=== PATIENT | male | born 1960 | race Caucasian/White ===

== ENCOUNTER 2017-03-17 19:56 | Inpatient (IN) | payer OTHER ==
[~2017-03-17] VITALS: Ht 188 cm; Wt 90.9 kg
[~2017-03-17 19:56] MED LIST: AMIODARONE HCL200 MG PO; ASPI-COR81 M3 PO; ASPIR 8181 MG PO; ATORVASTATIN CA40 M1 PO; BUMETANIDE2 MG PO; CARVEDILOL25 M1 PO; CLINDAMYCIN HC300 MG PO; CLOPIDOGREL75 M1 PO; COUMADIN5 MG PO; FUROSEMIDE20 MG PO; FUROSEMIDE40 MG PO; HYDRALAZINE HYD50 MG PO; HYDRALAZINE50 M1 PO; IMDUR30 MG PO; LAC PO; LASIX20 MG PO; LEVAQUIN500 MG PO; LIPITOR40 MG PO; LISINOPRIL20 MG PO; METOPROLOL SUC100 M1 PO; METOPROLOL SUCC50 M2 PO; PANTOPRAZOLE SO40 M1 PO; POTASSIUM CHLO10 MEQ PO; PRO40 PO; TOP50 PO; WARFARIN SOD5 M1 PO; XARELTO10 M1 PO; XARELTO15 M1 PO; ZESTRIL20 MG PO
[2017-03-17 22:15] LABS: BASOPHIL % 0.7 % (0-2); PLATELET COUNT 165 x10^3mcL (130-400)
[2017-03-17 22:28] LABS: CALCIUM 8.7 mg/dL (8.5-10.1); CARBON DIOXIDE 26.9 mmol/L (21-32); POTASSIUM SERUM 3.2 mmol/L (3.5-5.1)
[2017-03-17 22:33] LABS: BILIRUBIN TOTAL 0.7 mg/dL (0.20-1.00); MAGNESIUM 2.3 mg/dL (1.8-2.4); TOTAL PROTEIN, SERUM 6.6 g/dL (6.4-8.2)
[2017-03-17 22:35] LABS: ALBUMIN 3.2 g/dL (3.4-5.0)
[2017-03-17] MEDS ORDERED: XARELTO10 M1 PO (22:49)
[2017-03-17] MEDS ORDERED: AMIODARONE HCL200 MG PO (22:54)
[2017-03-18] VITALS (7 sets, daily range): BP systolic 129–171; BP diastolic 83–126; Ht 188 cm; Wt 90.9 kg
[2017-03-18 01:05] LABS: T3 TOTAL 0.85 ng/mL
[2017-03-18 01:07] LABS: CHOLESTEROL/HDL RATIO 2.3
[2017-03-18 01:17] LABS: FREE T4 1.43 ng/dL (0.76-1.46); FREE THYROXINE INDEX 3.6 ug/dL (1.4-4.5)
[2017-03-18 02:50] LABS: UA SPECIFIC GRAVITY 1.025 (1.005-1.035); microscopic required? YES; urine erythrocyte 2+ (NEGATIVE)
[2017-03-18 03:12] LABS: AMPHETAMINE QUAL UR NONE DETECTED (NEG <=1000)
[2017-03-18 06:18] LABS: BASOPHIL % 1.5 % (0-2); PLATELET COUNT 141 x10^3mcL (130-400)
[2017-03-18 06:48] LABS: RED CELL DISTRIBUTION WIDTH 19.1 % (11.5-14.5)
[2017-03-18 07:41] LABS: BILIRUBIN TOTAL 0.5 mg/dL (0.20-1.00); CALCIUM 8.1 mg/dL (8.5-10.1); CARBON DIOXIDE 24.6 mmol/L (21-32); CREATININE SERUM 3.9 mg/dL (0.7-1.3); POTASSIUM SERUM 3.2 mmol/L (3.5-5.1)
[2017-03-18 08:04] LABS: ALBUMIN 2.7 g/dL (3.4-5.0); TOTAL PROTEIN, SERUM 5.3 g/dL (6.4-8.2)
[2017-03-19 04:50] LABS: BASOPHIL % 0.8 % (0-2); PLATELET COUNT 145 x10^3mcL (130-400)
[2017-03-19 04:54] LABS: RED CELL DISTRIBUTION WIDTH 18.9 % (11.5-14.5)
[2017-03-19 05:01] LABS: CALCIUM 8.3 mg/dL (8.5-10.1); CARBON DIOXIDE 23.8 mmol/L (21-32); CREATININE SERUM 3.5 mg/dL (0.7-1.3); MAGNESIUM 2.2 mg/dL (1.8-2.4); PHOSPHOROUS 3.6 mg/dL (2.5-4.9); POTASSIUM SERUM 3.5 mmol/L (3.5-5.1)
[2017-03-19 05:50] VITALS: BP 149/109
[2017-03-19 07:15] VITALS: BP 144/102
[2017-03-19 13:38] VITALS: BP 120/78
[2017-03-19 17:05] VITALS: BP 137/96
[2017-03-19 20:54] VITALS: BP 146/100
[2017-03-20 06:12] VITALS: BP 147/65
[2017-03-20 06:44] LABS: BASOPHIL % 0.8 % (0-2); PLATELET COUNT 161 x10^3mcL (130-400)
[2017-03-20 07:00] LABS: CALCIUM 8.4 mg/dL (8.5-10.1); CARBON DIOXIDE 24.9 mmol/L (21-32); CREATININE SERUM 3.5 mg/dL (0.7-1.3); POTASSIUM SERUM 3.5 mmol/L (3.5-5.1)
[2017-03-20 09:47] VITALS: BP 140/94
[2017-03-20 13:39] VITALS: BP 124/83
[2017-03-20] MEDS ORDERED: THERA TABS1 TAB PO (17:54)
[2017-03-20 18:30] VITALS: BP 147/86
[2017-03-20 20:04] VITALS: BP 147/86
== END 2017-03-20 21:15 | disposition home or self-care (01) | DRG 203 ==
LOC: ED 19:56 → DU 23:18
PROVIDERS: Emergency Medicine; Family Medicine; ADMIT Family Medicine
DX: M94.0 Chondrocostal junction syndrome [Tietze] (principal); N17.0 Acute kidney failure with tubular necrosis; E43 Unspecified severe protein-calorie malnutrition; I50.43 Acute on chronic combined systolic (congestive) and diastolic (congestive) heart failure; E11.51 Type 2 diabetes mellitus with diabetic peripheral angiopathy without gangrene; I24.8 Other forms of acute ischemic heart disease; I48.91 Unspecified atrial fibrillation; E87.6 Hypokalemia; E44.0 Moderate protein-calorie malnutrition; E87.1 Hypo-osmolality and hyponatremia; E11.65 Type 2 diabetes mellitus with hyperglycemia; I16.0 Hypertensive urgency; I13.0 Hypertensive heart and chronic kidney disease with heart failure and stage 1 through stage 4 chronic kidney disease, or unspecified chronic kidney disease; N18.4 Chronic kidney disease, stage 4 (severe); D64.9 Anemia, unspecified; I25.10 Atherosclerotic heart disease of native coronary artery without angina pectoris; E78.5 Hyperlipidemia, unspecified; E03.9 Hypothyroidism, unspecified; Z68.25 Body mass index [BMI] 25.0-25.9, adult; Z59.0 Homelessness; Z95.0 Presence of cardiac pacemaker; Z79.01 Long term (current) use of anticoagulants; Z95.5 Presence of coronary angioplasty implant and graft; Z87.891 Personal history of nicotine dependence
CPT/HCPCS: 80307; 82962; 83880; 84439; A9500; G0480; J0360; J1644; J1940; J2270; J2785; J3480; J3490; J7030; Q0092

== ENCOUNTER 2017-07-15 08:57 | Inpatient (IN) | payer OTHER ==
[~2017-07-15] VITALS: Ht 188 cm; Wt 86.9 kg
[~2017-07-15 08:57] MED LIST changes: +THERA TABS1 TAB PO
[2017-07-15 09:32] LABS: BASOPHIL % 0.7 % (0-2); PLATELET COUNT 140 x10^3mcL (130-400)
[2017-07-15 09:49] LABS: RED CELL DISTRIBUTION WIDTH 19.2 % (11.5-14.5)
[2017-07-15 09:58] LABS: BILIRUBIN TOTAL 0.7 mg/dL (0.20-1.00); CALCIUM 8.6 mg/dL (8.5-10.1); CARBON DIOXIDE 26.5 mmol/L (21-32); POTASSIUM SERUM 4.1 mmol/L (3.5-5.1); TOTAL PROTEIN, SERUM 6.8 g/dL (6.4-8.2)
[2017-07-15 10:06] LABS: ALBUMIN 3.1 g/dL (3.4-5.0); CREATININE SERUM 4.2 mg/dL (0.7-1.3)
[2017-07-15 12:51] VITALS: BP 155/113
[2017-07-15 13:09] LABS: FREE T4 1.4 ng/dL (0.76-1.46); FREE THYROXINE INDEX 4.8 ug/dL (1.4-4.5)
[2017-07-15 13:13] LABS: MAGNESIUM 2.6 mg/dL (1.8-2.4); PHOSPHOROUS 3.2 mg/dL (2.5-4.9)
[2017-07-15 13:19] LABS: CHOLESTEROL/HDL RATIO 2.7
[2017-07-15 13:44] LABS: T3 TOTAL 0.74 ng/mL
[2017-07-15 17:11] VITALS: BP 161/117
[2017-07-15 21:57] VITALS: BP 156/113
[2017-07-16] VITALS (8 sets, daily range): BP systolic 123–172; BP diastolic 85–119
[2017-07-16 02:25] LABS: PLATELET COUNT 161 x10^3mcL (130-400)
[2017-07-16 02:46] LABS: CALCIUM 8.7 mg/dL (8.5-10.1); CARBON DIOXIDE 24.4 mmol/L (21-32); MAGNESIUM 2.6 mg/dL (1.8-2.4); PHOSPHOROUS 4.4 mg/dL (2.5-4.9); POTASSIUM SERUM 3.7 mmol/L (3.5-5.1)
[2017-07-16 02:51] LABS: CREATININE SERUM 4.3 mg/dL (0.7-1.3)
[2017-07-16 07:25] LABS: AMPHETAMINE QUAL UR NONE DETECTED (NEG <=1000)
[2017-07-16 11:05] LABS: microscopic required? YES; urine erythrocyte 2+ (NEGATIVE)
[2017-07-17 05:45] VITALS: BP 122/86
[2017-07-17 08:30] VITALS: BP 155/104
[2017-07-17 09:35] VITALS: BP 116/82
[2017-07-17 12:16] VITALS: BP 141/95
[2017-07-17 16:55] VITALS: BP 129/94
[2017-07-17 21:03] VITALS: BP 133/89
[2017-07-18 06:01] VITALS: BP 148/98
[2017-07-18 06:49] LABS: CALCIUM 8.3 mg/dL (8.5-10.1); CARBON DIOXIDE 28.8 mmol/L (21-32); CREATININE SERUM 3.6 mg/dL (0.7-1.3); POTASSIUM SERUM 3.3 mmol/L (3.5-5.1)
[2017-07-18 09:18] VITALS: BP 144/104
[2017-07-18 12:14] VITALS: BP 143/108
[2017-07-18 13:40] VITALS: BP 142/95
[2017-07-18 13:50] VITALS: BP 142/95
== END 2017-07-18 15:00 | disposition home or self-care (01) | DRG 243 ==
LOC: ED 08:57 → DU 11:23
PROVIDERS: Family Medicine; ADMIT Family Medicine
DX: K21.9 Gastro-esophageal reflux disease without esophagitis (principal); N17.0 Acute kidney failure with tubular necrosis; I50.43 Acute on chronic combined systolic (congestive) and diastolic (congestive) heart failure; I42.0 Dilated cardiomyopathy; E11.22 Type 2 diabetes mellitus with diabetic chronic kidney disease; E46 Unspecified protein-calorie malnutrition; N18.4 Chronic kidney disease, stage 4 (severe); E11.65 Type 2 diabetes mellitus with hyperglycemia; I48.91 Unspecified atrial fibrillation; M94.0 Chondrocostal junction syndrome [Tietze]; I13.0 Hypertensive heart and chronic kidney disease with heart failure and stage 1 through stage 4 chronic kidney disease, or unspecified chronic kidney disease; E83.41 Hypermagnesemia; E02 Subclinical iodine-deficiency hypothyroidism; I25.10 Atherosclerotic heart disease of native coronary artery without angina pectoris; Z95.0 Presence of cardiac pacemaker; Z68.25 Body mass index [BMI] 25.0-25.9, adult; Z95.1 Presence of aortocoronary bypass graft; Z87.891 Personal history of nicotine dependence; Z95.5 Presence of coronary angioplasty implant and graft; E78.5 Hyperlipidemia, unspecified; E78.00 Pure hypercholesterolemia, unspecified
CPT/HCPCS: 82962; 83880; 84439; J0360; J1940; J2270; J2405; J3490; Q0092

== ENCOUNTER 2017-07-18 16:02 | Emergency (ER) | payer OTHER ==
[~2017-07-18] VITALS: Ht 188 cm; Wt 86.2 kg
[2017-07-18 17:33] LABS: BASOPHIL % 1.2 % (0-2); PLATELET COUNT 144 x10^3mcL (130-400)
[2017-07-18 17:37] LABS: BILIRUBIN TOTAL 0.65 mg/dL (0.20-1.00); CALCIUM 8.9 mg/dL (8.5-10.1); PHOSPHOROUS 3.1 mg/dL (2.5-4.9); TOTAL PROTEIN, SERUM 6.7 g/dL (6.4-8.2); URIC ACID 7.9 mg/dL (3.5-7.2)
[2017-07-18 17:40] LABS: ALBUMIN 2.9 g/dL (3.4-5.0)
[2017-07-18 17:41] LABS: CREATININE SERUM 4.1 mg/dL (0.7-1.3)
[2017-07-18 17:43] LABS: RED CELL DISTRIBUTION WIDTH 19.4 % (11.5-14.5)
[2017-07-18 19:20] VITALS: BP 168/126
== END 2017-07-18 19:20 | disposition home or self-care (01) ==
LOC: ED 16:02
PROVIDERS: Emergency Medicine
DX: R55 Syncope and collapse (principal); I10 Essential (primary) hypertension; Z86.79 Personal history of other diseases of the circulatory system
CPT/HCPCS: 83880; J7040; Q0092

== ENCOUNTER 2017-08-20 12:49 | Inpatient (IN) | payer OTHER ==
[~2017-08-20] VITALS: Ht 188 cm; Wt 88.6 kg
[2017-08-20 16:37] LABS: BASOPHIL % 0.8 % (0-2); PLATELET COUNT 143 x10^3mcL (130-400)
[2017-08-20 16:41] LABS: CALCIUM 8.8 mg/dL (8.5-10.1); CARBON DIOXIDE 26.9 mmol/L (21-32); CREATININE SERUM 3.8 mg/dL (0.7-1.3); POTASSIUM SERUM 3.3 mmol/L (3.5-5.1)
[2017-08-20 16:46] LABS: BILIRUBIN TOTAL 0.8 mg/dL (0.20-1.00); TOTAL PROTEIN, SERUM 7.2 g/dL (6.4-8.2)
[2017-08-20 16:48] LABS: ALBUMIN 3.1 g/dL (3.4-5.0)
[2017-08-20 19:46] LABS: MAGNESIUM 2.6 mg/dL (1.8-2.4); PHOSPHOROUS 3.1 mg/dL (2.5-4.9)
[2017-08-20 20:33] VITALS: BP 167/98
[2017-08-20 21:26] LABS: UA SPECIFIC GRAVITY 1.015 (1.005-1.035); microscopic required? YES; urine erythrocyte 1+ (NEGATIVE)
[2017-08-20 22:15] VITALS: BP 124/91
[2017-08-21] VITALS (9 sets, daily range): BP systolic 147–179; BP diastolic 89–135
[2017-08-21 06:13] LABS: BASOPHIL % 1.1 % (0-2); PLATELET COUNT 134 x10^3mcL (130-400)
[2017-08-21 06:19] LABS: RED CELL DISTRIBUTION WIDTH 18.8 % (11.5-14.5)
[2017-08-21 06:42] LABS: CALCIUM 8.5 mg/dL (8.5-10.1); CARBON DIOXIDE 27.4 mmol/L (21-32); CREATININE SERUM 3.6 mg/dL (0.7-1.3); POTASSIUM SERUM 3.3 mmol/L (3.5-5.1)
[2017-08-22] VITALS (7 sets, daily range): BP systolic 147–168; BP diastolic 100–122
[2017-08-22 07:23] LABS: BASOPHIL % 1.1 % (0-2); PLATELET COUNT 131 x10^3mcL (130-400)
[2017-08-22 07:47] LABS: CALCIUM 8.4 mg/dL (8.5-10.1); CARBON DIOXIDE 27.9 mmol/L (21-32); CREATININE SERUM 3.6 mg/dL (0.7-1.3); MAGNESIUM 2.6 mg/dL (1.8-2.4); PHOSPHOROUS 3.2 mg/dL (2.5-4.9)
[2017-08-23 05:13] VITALS: BP 150/109
[2017-08-23 06:32] LABS: CALCIUM 8.3 mg/dL (8.5-10.1); CARBON DIOXIDE 30.5 mmol/L (21-32); CREATININE SERUM 3.6 mg/dL (0.7-1.3); MAGNESIUM 2.4 mg/dL (1.8-2.4); PHOSPHOROUS 3.2 mg/dL (2.5-4.9); POTASSIUM SERUM 3.7 mmol/L (3.5-5.1)
[2017-08-23 07:08] LABS: BASOPHIL % 0.9 % (0-2); PLATELET COUNT 144 x10^3mcL (130-400); RED CELL DISTRIBUTION WIDTH 18.8 % (11.5-14.5)
[2017-08-23 08:30] VITALS: BP 145/102
[2017-08-23 15:08] VITALS: BP 134/96
[2017-08-23] MEDS ORDERED: BG FS (16:50)
[2017-08-23] MEDS ORDERED: CORE25 PO (16:54)
[2017-08-23] MEDS ORDERED: CLOPIDOGREL75 M1 PO (16:55)
[2017-08-23 17:04] VITALS: BP 134/96
[2017-08-23 17:38] VITALS: BP 150/80; BP 169/127
== END 2017-08-23 18:10 | disposition home or self-care (01) | DRG 194 ==
LOC: ED 12:49 → DU 17:36
PROVIDERS: Emergency Medicine; Family Medicine Sports Medicine; ADMIT Family Medicine
DX: I13.2 Hypertensive heart and chronic kidney disease with heart failure and with stage 5 chronic kidney disease, or end stage renal disease (principal); N17.0 Acute kidney failure with tubular necrosis; D68.69 Other thrombophilia; E11.22 Type 2 diabetes mellitus with diabetic chronic kidney disease; N18.6 End stage renal disease; E11.65 Type 2 diabetes mellitus with hyperglycemia; I42.0 Dilated cardiomyopathy; I50.43 Acute on chronic combined systolic (congestive) and diastolic (congestive) heart failure; E44.1 Mild protein-calorie malnutrition; E87.6 Hypokalemia; I48.91 Unspecified atrial fibrillation; I25.10 Atherosclerotic heart disease of native coronary artery without angina pectoris; M94.0 Chondrocostal junction syndrome [Tietze]; Z95.0 Presence of cardiac pacemaker; Z68.25 Body mass index [BMI] 25.0-25.9, adult; Z95.5 Presence of coronary angioplasty implant and graft; E78.00 Pure hypercholesterolemia, unspecified; Z53.29 Procedure and treatment not carried out because of patient's decision for other reasons; I16.0 Hypertensive urgency; D64.9 Anemia, unspecified
CPT/HCPCS: 83880; 94150; J0360; J0696; J1940; J3490; J7030; J7613; J7620; J7644; Q0092

== ENCOUNTER 2017-09-15 11:22 | Inpatient (IN) | payer OTHER ==
[~2017-09-15] VITALS: Ht 188 cm; Wt 91.7 kg
[~2017-09-15 11:22] MED LIST changes: +BG FS; +CORE25 PO
[2017-09-15 12:23] LABS: BASOPHIL % 1.3 % (0-2); PLATELET COUNT 143 x10^3mcL (130-400)
[2017-09-15 12:28] LABS: BILIRUBIN TOTAL 0.86 mg/dL (0.20-1.00); CALCIUM 8.6 mg/dL (8.5-10.1); CARBON DIOXIDE 25.8 mmol/L (21-32); POTASSIUM SERUM 3.3 mmol/L (3.5-5.1); TOTAL PROTEIN, SERUM 6.9 g/dL (6.4-8.2)
[2017-09-15 12:32] LABS: ALBUMIN 3.1 g/dL (3.4-5.0); CREATININE SERUM 4.2 mg/dL (0.7-1.3)
[2017-09-15] MEDS ORDERED: AMIODARONE HCL200 MG PO (13:27)
[2017-09-15 15:13] VITALS: BP 163/103
[2017-09-15 15:16] LABS: FREE T4 1.21 ng/dL (0.76-1.46); FREE THYROXINE INDEX 3.5 ug/dL (1.4-4.5); T4(THYROXINE) 9.3 ug/dL (4.7-13.3)
[2017-09-15 15:17] LABS: T3 TOTAL 0.68 ng/mL
[2017-09-15 15:29] LABS: MAGNESIUM 2.4 mg/dL (1.8-2.4)
[2017-09-15 15:31] LABS: CHOLESTEROL/HDL RATIO 2.6
[2017-09-15 15:47] LABS: microscopic required? YES; urine erythrocyte 1+ (NEGATIVE)
[2017-09-15 16:46] LABS: AMPHETAMINE QUAL UR NONE DETECTED (NEG <=1000)
[2017-09-16 04:18] LABS: PLATELET COUNT 139 x10^3mcL (130-400); RED CELL DISTRIBUTION WIDTH 18.8 % (11.5-14.5)
[2017-09-16 04:31] LABS: CALCIUM 8.2 mg/dL (8.5-10.1); CARBON DIOXIDE 25.4 mmol/L (21-32); MAGNESIUM 2.3 mg/dL (1.8-2.4); PHOSPHOROUS 3.6 mg/dL (2.5-4.9); POTASSIUM SERUM 3.5 mmol/L (3.5-5.1)
[2017-09-16 20:25] VITALS: BP 170/125
[2017-09-16 20:28] VITALS: Ht 188 cm; Wt 91.7 kg
[2017-09-16 23:11] VITALS: BP 162/114
[2017-09-17] VITALS (8 sets, daily range): BP systolic 143–173; BP diastolic 93–133
[2017-09-17 06:45] LABS: BASOPHIL % 1.4 % (0-2); PLATELET COUNT 131 x10^3mcL (130-400)
[2017-09-17 06:51] LABS: RED CELL DISTRIBUTION WIDTH 19.7 % (11.5-14.5)
[2017-09-17 06:57] LABS: CALCIUM 8.6 mg/dL (8.5-10.1); CARBON DIOXIDE 23.5 mmol/L (21-32); POTASSIUM SERUM 3.2 mmol/L (3.5-5.1)
[2017-09-18] VITALS (14 sets, daily range): BP systolic 137–180; BP diastolic 96–144
[2017-09-18 06:34] LABS: CALCIUM 8.6 mg/dL (8.5-10.1); CARBON DIOXIDE 26.7 mmol/L (21-32); POTASSIUM SERUM 3.7 mmol/L (3.5-5.1)
[2017-09-18 06:53] LABS: BASOPHIL % 1.7 % (0-2); PLATELET COUNT 129 x10^3mcL (130-400); RED CELL DISTRIBUTION WIDTH 20.1 % (11.5-14.5); rbc morphology (normal/abnorm) ABNORMAL (NORMAL)
[2017-09-18] MEDS ORDERED: FLONS (09:45)
[2017-09-18] MEDS ORDERED: PLA75 PO (09:48)
[2017-09-18] MEDS ORDERED: ATORVASTATIN CA40 M1 PO (09:50)
[2017-09-18] MEDS ORDERED: ASPIR 8181 MG PO (09:56)
[2017-09-18] MEDS ORDERED: XARELTO15 M1 PO (09:58)
[2017-09-18] MEDS ORDERED: ZESTRIL20 MG PO (09:58)
[2017-09-18] MEDS ORDERED: LASIX40 MG PO (10:00)
[2017-09-19 01:09] VITALS: BP 150/90; BP 150/95
[2017-09-19 06:16] VITALS: BP 140/113
[2017-09-19 06:50] LABS: CALCIUM 8.4 mg/dL (8.5-10.1); CARBON DIOXIDE 26.9 mmol/L (21-32); CREATININE SERUM 3.7 mg/dL (0.7-1.3); POTASSIUM SERUM 3.7 mmol/L (3.5-5.1)
[2017-09-19 07:06] LABS: BASOPHIL % 2.1 % (0-2); PLATELET COUNT 123 x10^3mcL (130-400); RED CELL DISTRIBUTION WIDTH 19.5 % (11.5-14.5)
[2017-09-19 07:09] VITALS: BP 168/114
[2017-09-19] MEDS ORDERED: CORE25 PO (07:23)
[2017-09-19] MEDS ORDERED: ZES20 PO (07:24)
[2017-09-19] MEDS ORDERED: LEVAQUIN750 MG PO (07:40)
[2017-09-19] MEDS ORDERED: CLEOCIN HCL300 MG PO (07:41)
[2017-09-19] MEDS ORDERED: LAC PO (07:42)
[2017-09-19] MEDS ORDERED: HYDRALAZINE HCL25 MG PO (07:48)
[2017-09-19] MEDS ORDERED: ISORDIL TITRADO40 MG PO (07:49)
[2017-09-19 09:16] VITALS: BP 151/106
[2017-09-19 11:38] VITALS: BP 145/99
[2017-09-19 12:30] VITALS: BP 145/99
== END 2017-09-19 12:45 | disposition home or self-care (01) | DRG 137 ==
LOC: ED 11:22 → DU 09-16 19:03
PROVIDERS: Emergency Medicine; Family Medicine; ADMIT Family Medicine
DX: J69.0 Pneumonitis due to inhalation of food and vomit (principal); N17.0 Acute kidney failure with tubular necrosis; I50.43 Acute on chronic combined systolic (congestive) and diastolic (congestive) heart failure; I42.0 Dilated cardiomyopathy; N18.4 Chronic kidney disease, stage 4 (severe); E11.22 Type 2 diabetes mellitus with diabetic chronic kidney disease; I48.91 Unspecified atrial fibrillation; I13.0 Hypertensive heart and chronic kidney disease with heart failure and stage 1 through stage 4 chronic kidney disease, or unspecified chronic kidney disease; M94.0 Chondrocostal junction syndrome [Tietze]; I16.0 Hypertensive urgency; R80.9 Proteinuria, unspecified; E02 Subclinical iodine-deficiency hypothyroidism; D64.9 Anemia, unspecified; Z95.0 Presence of cardiac pacemaker; Z68.26 Body mass index [BMI] 26.0-26.9, adult
CPT/HCPCS: 36600; 83880; 84439; 90658; J0360; J0696; J1940; J2543; J3010; J3490; J7030; J7620; Q0092

== ENCOUNTER 2017-11-12 10:06 | Inpatient (IN) | payer OTHER ==
[~2017-11-12] VITALS: Ht 188 cm; Wt 97.2 kg
[~2017-11-12 10:06] MED LIST changes: +CLEOCIN HCL300 MG PO; +FLONS; +HYDRALAZINE HCL25 MG PO; +ISORDIL TITRADO40 MG PO; +LASIX40 MG PO; +LEVAQUIN750 MG PO; +PLA75 PO; +ZES20 PO
[2017-11-12 10:08] VITALS: Ht 188 cm; Wt 97.2 kg
--- NOTE | 2017-11-12 10:17 | NUR ---
PT IN RM
--- NOTE | 2017-11-12 10:28 | NUR ---
DR OTTO AT BEDSIDE FOR EVAL OF CP AND SOB SINCE THIS AM. PT HAS FULL CLEAR SPEECH; COMPLIANT ON MEDS; NO S/S OF RESP DISTRESS. SKIN COLOR WNL
[2017-11-12 11:09] LABS: BASOPHIL % 0.9 % (0-2); CALCIUM 8.1 mg/dL (8.5-10.1); CARBON DIOXIDE 22.6 mmol/L (21-32); CREATININE SERUM 3.4 mg/dL (0.7-1.3); PLATELET COUNT 176 x10^3mcL (130-400); POTASSIUM SERUM 3.3 mmol/L (3.5-5.1); RED CELL DISTRIBUTION WIDTH 18.1 % (11.5-14.5)
[2017-11-12 11:14] LABS: BILIRUBIN TOTAL 0.7 mg/dL (0.20-1.00); TOTAL PROTEIN, SERUM 6.4 g/dL (6.4-8.2)
[2017-11-12 11:16] LABS: ALBUMIN 2.6 g/dL (3.4-5.0)
--- NOTE | 2017-11-12 11:42 | NUR ---
DR OTTO DISCUSSED POC WITH PT
--- NOTE | 2017-11-12 11:49 | NUR ---
GIVEN VASOTEC FOR HBP
[2017-11-12] MEDS ORDERED: AMIODARONE HCL200 MG PO (11:54)
--- NOTE | 2017-11-12 12:14 | NUR ---
REPORT GIVEN TO MAURI FINNEGAN. WILL RECHECK HBP
--- NOTE | 2017-11-12 12:16 | NUR ---
DR OTTO AWARE OF HBP
--- NOTE | 2017-11-12 12:39 | NUR ---
OK PER RESIDENT DR STRAUSS FOR PT TO GO TO TELE FLOOR. AWARE OF CURRENT HBP
--- NOTE | 2017-11-12 13:12 | NUR ---
REC'D PT FROM ER VIA [facility]. PT IS AAOX4. C/O 5/10 HEADACHE. PT'S BP IS ELEVATED. BP = 185/132, MAP = 149. PRIMARY NURSE AWARE. TELE #11 PACED ON DEMAND. RESP EVEN AND UNLABORED. PT C/O MILD SOB. PT O2 SAT = 96%. APPLIED 2L O2 VIA NC FOR COMFORT. 2+ EDEMA NOTED TO BLE. IV NOTED TO LH. INTACT AND PATENT. ORIENTED PT TO CALL LIGHT. BED IN LOWEST POSITION. WILL ENDORSE TO PRIMARY RN.
[2017-11-12 13:22] VITALS: BP 185/132
--- NOTE | 2017-11-12 14:00 | NUR ---
REPORTS NOT TAKING ANY OF HIS BP MEDS THIS AM, DENIES RINCON OR VISUAL CHANGES, ABLE TO VERBALIZE NEEDS WITH CLEAR SPEECH, AMBULATES WITH STEADY GAIT, BLE EDEMA NOTED, ENCOURAGED TO ELEVATE BLE, CALL LIGHT WITHIN REACH, WILL CONTINUE TO PROVIDE CARE.
--- NOTE | 2017-11-12 14:35 | NUR ---
DOSE OF HYDRALAZINE ADMINISTERED ORDERED, PT IS A-FIB/PACED ON DEMAND ON TELE MONITOR, DENIES RINCON OR DIZZINESS, WILL CONTINUE TO PROVIDE CARE.
--- NOTE | 2017-11-12 14:37 | NUR ---
US ABD BEING DONE AT THIS TIME.
[2017-11-12 15:12] VITALS: BP 172/118
[2017-11-12 15:29] LABS: MAGNESIUM 2.2 mg/dL (1.8-2.4); PHOSPHOROUS 3.9 mg/dL (2.5-4.9)
[2017-11-12 15:30] LABS: CHOLESTEROL/HDL RATIO 1.9
--- NOTE | 2017-11-12 15:58 | NUR ---
RECEIVED CRITICAL RADIOLOGY REPORT OF US ABD. HANDED OVER TO DR. STRAUSS FOR REVIEW. WILL CONT TOMONITOR.
[2017-11-12 17:35] VITALS: BP 172/118
[2017-11-12 17:46] LABS: FREE T4 1.42 ng/dL (0.76-1.46); FREE THYROXINE INDEX 4.3 ug/dL (1.4-4.5); T4(THYROXINE) 11.5 ug/dL (4.7-13.3)
[2017-11-12 18:10] LABS: T3 TOTAL 0.71 ng/mL
[2017-11-12 19:00] VITALS: BP 178/121
--- NOTE | 2017-11-12 19:08 | NUR ---
RESTING IN BED, RECEIVED DOSE OF XARELTO, DOSE OF PHENERGAN WAS EFFECTIVE, ABLE TO AMBULATE TO RESTROOM, DENIES RINCON OR DIZZINESS, DR STRAUSS IS AWARE OF US-ABD RESULTS, NO OTHER SIGNIFICANT CHANGES NOTED, CARE ENDORSED TO NIGHT NURSE.
--- NOTE | 2017-11-12 19:50 | NUR ---
AWAKE AND VERBALLY RESPONSIVE. ABLE TO MAKE NEEDS KNOWN. SKIN WARM AND DRY TO TOUCH WITH 2+EDEMA ON GUILLERMO LOWER EXTREMITIES. ON TELE 11 SHOWS PACED ON DEMAND. DENIES ANY CHEST PAIN/DISCOMFORT AT THIS TIME. MAINTAINED ON 02 AT 2L/NC TO FACILITATE BREATHING. WILL CONTINUE TO MONITOR.
[2017-11-12 21:21] VITALS: BP 147/107
--- NOTE | 2017-11-12 22:00 | NUR ---
RECIEVED PT FROM SHRADDHA FINNEGAN. PT IS AAOX4 ON RA. IV ACCESS IN LEFT HAND, LOCKED. DENIES ANY PAIN AT THIS TIME. ABD IS SOFT, ROUND, NON-TENDER. CALL LIGHT WITHIN REACH. WILL CONTINUE TO MONITOR.
[2017-11-12 23:20] LABS: UA SPECIFIC GRAVITY 1.015 (1.005-1.035); microscopic required? YES; urine erythrocyte TRACE (NEGATIVE)
[2017-11-12 23:54] LABS: AMPHETAMINE QUAL UR NONE DETECTED (NEG <=1000)
--- NOTE | 2017-11-13 00:25 | NUR ---
PT SLEEPING WITH NO SIGNS OF ACUTE DISTRESS, CALL LIGHT WITHIN REACH. WILL CONTINUE TO MONITOR.
[2017-11-13 05:07] VITALS: BP 167/116
--- NOTE | 2017-11-13 06:06 | NUR ---
PT IS RESTING COMFORTABLY. ALL NEEDS HAVE BEEN MET THROUGHOUT THE NIGHT. CALL LIGHT WITHIN REACH. WILL CONTINUE TO MONITOR.
[2017-11-13 07:30] LABS: BASOPHIL % 0.7 % (0-2); PLATELET COUNT 162 x10^3mcL (130-400)
[2017-11-13 07:32] LABS: RED CELL DISTRIBUTION WIDTH 18.2 % (11.5-14.5)
--- NOTE | 2017-11-13 07:40 | NUR ---
PT RESTING IN BED WITH NO APPARENT SIGNS OF DISTRESS. A/A/O/X4, SPEECH CLEAR AND APPROPRIATE. DENIES DIZZINESS, RINCON/SYNCOPE. ON TELE 11 PACED ON DEMAND. DENIES CHEST PAIN/PRESSURE. PALP PULSES, +2 EDEMA NOTED. RESPIRATIONS EQUAL AND UNLABORED. LUNGS DIMINISHED IN BASES. ON 2L O2 VIA NC. DENIES SOB AT THIS TIME. ABDOMEN SOFT AND NONTENDER. ACTIVE BS. DENIES N/V. VOIDS FREELY, DENIES BURNING. AMBULATORY WITH BRP. SKIN W/D/I. DENIES PAIN AT THIS TIME. IV WNL, SL. BED IN LOW POSITION. CALL LIGHT IN REACH. PT EDUCATED ON USING THE CALL LIGHT WHEN NEEDING ASSISTANCE. WILL CONTINUE TO MONITOR.
[2017-11-13 07:50] LABS: CALCIUM 8.1 mg/dL (8.5-10.1); CARBON DIOXIDE 25.1 mmol/L (21-32); CREATININE SERUM 3.4 mg/dL (0.7-1.3); POTASSIUM SERUM 3.5 mmol/L (3.5-5.1)
[2017-11-13 09:07] VITALS: BP 168/102
--- NOTE | 2017-11-13 11:49 | NUR ---
PT RESTING IN BED WITH NO APPARENT SIGNS OF DISTRESS. RESPIRATIONS EQUAL AND UNLABORED. DENIES PAIN AT THIS TIME. BED IN LOW POSITION. CALL LIGHT IN REACH. WILL CONTINUE TO MONITOR.
[2017-11-13 12:32] VITALS: BP 154/106
--- NOTE | 2017-11-13 15:35 | NUR ---
PT RESTING IN BED WITH NO APPARENT SIGNS OF DISTRESS. DENIES CHEST PAIN/PRESSURE. DENIES ANY DISCOMFORT AT THIS TIME. CALL LIGHT IN REACH. WILL CONTINUE TO MONITOR. WILL CONTINUE TO MONITOR.
[2017-11-13 18:00] VITALS: BP 182/122
--- NOTE | 2017-11-13 18:57 | NUR ---
PT RESTING IN BED WITH NO APPARENT SIGNS OF DISTRESS. RESPIRATIONS EQUAL AND UNLABORED. ON TELE 11 PACED ON DEMAND. DENIES CHEST PAIN/PRESSURE. DENIES DIZZINESS/SOB. IV WNL, SL. BED IN LOW POSITION. CALL LIGHT IN REACH. WILL ENDORSE TO PIGEON FANCIER RN.
--- NOTE | 2017-11-13 19:15 | NUR ---
EYES CLOSED BUT AROUSABLE TO VERBAL STIMULI. SKIN WARM AND DRY TO TOUCH. RESPIRATION EVEN AND UNLABORED, DIMINISHED ON BILATERAL BASES. SKIN WARM AND DRY TO TOUCH WITH 2+EDEMA ON BLE. BOTH LE ELEVATED ON PILOOWS FOR SUPPORT. CALL LIGHT WITHIN REACH. WILL CONTINUE TO MONITOR.
[2017-11-13 21:35] VITALS: BP 157/114
--- NOTE | 2017-11-14 | NUR ---
STARTED ON ATB IVPB FOR MANAGEMENT OF ACUTE CHOLECYSTITS. NO ADVERSE REACTION NOTED. TOLERATED ORAL FLUIDS, NO S/S OF ASPIRATION NOTED.
[2017-11-14 05:27] VITALS: BP 148/104
--- NOTE | 2017-11-14 06:20 | NUR ---
BLOOD SUGAR CHECKED 108,\MG/DL, NO INSULIN COVERAGE. AMBULATED TO BATHROOM FOR PERSONAL NEEDS. KEPT CLEAN AND RY. DENIES ANY PAIN/DISCOMFORT AT THIS TIME. GEOFF DVERSE REACTION NTOED FROMA TB THERAPY.
--- NOTE | 2017-11-14 08:00 | NUR ---
RC'D PT RESTING IN BED WITH NO APPARENT SIGNS OF DISTRESS. A/A/O/X4, SPEECH CLEAR AND APPROPRIATE. ON TELE WITH 11 PACED ON DEMAND. PALP PULSES, EDEMA ON BLE. RESPIRATIONS EQUAL AND UNLABORED. NON-PRODUCTIVE COUGH NOTED. SLIGHT CONGESTION UPON EXCERTION. ON 2L O2 VIA NC, DENIES SOB. ABDOMEN SOFT AND NONTENDER. ACTIVE BS. DENIES N/V. VOIDS FREELY, DENIES BURNING. AMBULATORY WITH BRP. SKIN W/D/I. DENIES PAIN AT THIS TIME. IV WNL. BED IN LOW POSITION. CALL LIGHT IN REACH. WILL CONTINUE TO MONITOR.
[2017-11-14 10:21] LABS: CALCIUM 7.9 mg/dL (8.5-10.1); CARBON DIOXIDE 26.5 mmol/L (21-32); CREATININE SERUM 3.2 mg/dL (0.7-1.3); MAGNESIUM 2.2 mg/dL (1.8-2.4); POTASSIUM SERUM 3.2 mmol/L (3.5-5.1)
[2017-11-14 10:29] LABS: BASOPHIL % 0.7 % (0-2); PLATELET COUNT 157 x10^3mcL (130-400); RED CELL DISTRIBUTION WIDTH 18.4 % (11.5-14.5)
[2017-11-14 11:07] VITALS: BP 148/87
[2017-11-14] MEDS ORDERED: AMIODARONE HCL200 MG PO (12:04)
[2017-11-14] MEDS ORDERED: HYDRALAZINE HY100 MG PO (12:05)
[2017-11-14] MEDS ORDERED: IMD60 PO (12:06)
[2017-11-14] MEDS ORDERED: POTASSIUM CHLO20 ME1 PO (12:07)
[2017-11-14] MEDS ORDERED: LEVOFLOXACIN500 M1 PO (12:12)
[2017-11-14] MEDS ORDERED: FLA500 PO (12:13)
[2017-11-14] MEDS ORDERED: LAC PO (12:13)
--- NOTE | 2017-11-14 13:00 | NUR ---
PT RESTING IN BED WITH NO APPARENT. RESPIRATIONS EQUAL AND UNLABORED. DENIES PAIN AT THIS TIME. BED IN LOW POSITION. CALL LIGHT IN REACH. WILL CONTINUE TO MONITOR.
[2017-11-14 13:10] VITALS: BP 148/87
== END 2017-11-14 14:30 | disposition home or self-care (01) | DRG 194 ==
LOC: ED 10:06 → DU 11:38
PROVIDERS: Emergency Medicine; Family Medicine Sports Medicine; ADMIT Family Medicine
DX: I13.0 Hypertensive heart and chronic kidney disease with heart failure and stage 1 through stage 4 chronic kidney disease, or unspecified chronic kidney disease (principal); N17.0 Acute kidney failure with tubular necrosis; E43 Unspecified severe protein-calorie malnutrition; E78.5 Hyperlipidemia, unspecified; I49.1 Atrial premature depolarization; I50.43 Acute on chronic combined systolic (congestive) and diastolic (congestive) heart failure; Z53.29 Procedure and treatment not carried out because of patient's decision for other reasons; M94.0 Chondrocostal junction syndrome [Tietze]; N18.9 Chronic kidney disease, unspecified; D63.8 Anemia in other chronic diseases classified elsewhere; E87.6 Hypokalemia; I42.0 Dilated cardiomyopathy; Z95.0 Presence of cardiac pacemaker; Z95.5 Presence of coronary angioplasty implant and graft; Z82.49 Family history of ischemic heart disease and other diseases of the circulatory system
CPT/HCPCS: 83880; 84439; J0360; J1940; J2543; J3480; J3490; J7030; J7620; Q0092

== ENCOUNTER 2017-12-08 14:29 | Inpatient (IN) | payer OTHER ==
[~2017-12-08] VITALS: Ht 188 cm; Wt 101.0 kg
[~2017-12-08 14:29] MED LIST changes: +FLA500 PO; +HYDRALAZINE HY100 MG PO; +IMD60 PO; +LEVOFLOXACIN500 M1 PO; +POTASSIUM CHLO20 ME1 PO
[2017-12-08 15:37] LABS: BASOPHIL % 0.8 % (0-2); PLATELET COUNT 195 x10^3mcL (130-400)
[2017-12-08 15:38] LABS: RED CELL DISTRIBUTION WIDTH 18.9 % (11.5-14.5)
[2017-12-08 15:45] LABS: CALCIUM 8.1 mg/dL (8.5-10.1); CARBON DIOXIDE 25.9 mmol/L (21-32); CREATININE SERUM 3.2 mg/dL (0.7-1.3); POTASSIUM SERUM 4.2 mmol/L (3.5-5.1)
[2017-12-08 15:50] LABS: BILIRUBIN TOTAL 0.53 mg/dL (0.20-1.00); TOTAL PROTEIN, SERUM 6.2 g/dL (6.4-8.2)
[2017-12-08 16:03] LABS: ALBUMIN 2.4 g/dL (3.4-5.0)
[2017-12-08] MEDS ORDERED: LEVAQUIN500 M1 PO (17:13)
[2017-12-08] MEDS ORDERED: FLA500 PO (17:13)
[2017-12-08] MEDS ORDERED: LAC PO (17:13)
[2017-12-08 17:19] LABS: MAGNESIUM 2.2 mg/dL (1.8-2.4); PHOSPHOROUS 3.6 mg/dL (2.5-4.9)
[2017-12-08 17:20] LABS: CHOLESTEROL/HDL RATIO 1.8
[2017-12-08 17:31] LABS: FREE T4 1.42 ng/dL (0.76-1.46); FREE THYROXINE INDEX 3.7 ug/dL (1.4-4.5); T4(THYROXINE) 9.3 ug/dL (4.7-13.3)
[2017-12-08 17:46] LABS: T3 TOTAL 0.84 ng/mL
[2017-12-08 22:32] VITALS: BP 153/121
[2017-12-08 22:59] VITALS: BP 163/113
[2017-12-08 23:56] LABS: UA SPECIFIC GRAVITY 1.015 (1.005-1.035); microscopic required? YES; urine erythrocyte TRACE (NEGATIVE)
[2017-12-09] VITALS (12 sets, daily range): BP systolic 131–173; BP diastolic 83–137; Ht 188 cm; Wt 101.0 kg
[2017-12-09 00:06] LABS: AMPHETAMINE QUAL UR NONE DETECTED (NEG <=1000)
[2017-12-09 06:34] LABS: CALCIUM 8.2 mg/dL (8.5-10.1); CARBON DIOXIDE 25.6 mmol/L (21-32); CREATININE SERUM 3.1 mg/dL (0.7-1.3); MAGNESIUM 2.1 mg/dL (1.8-2.4); PHOSPHOROUS 3.8 mg/dL (2.5-4.9); POTASSIUM SERUM 3.8 mmol/L (3.5-5.1)
[2017-12-09 06:47] LABS: PLATELET COUNT 169 x10^3mcL (130-400); RED CELL DISTRIBUTION WIDTH 18.6 % (11.5-14.5)
[2017-12-09 10:11] LABS: BAND NEUTROPHIL 1 % (0-10); BASOPHIL 0 % (0-2); MONOCYTE 10 % (0-7); SEGMENTED NEUTROPHILS 64 % (37-75)
[2017-12-09 10:12] LABS: rbc morphology (normal/abnorm) ABNORMAL (NORMAL); tear drop cell (dacryocyte) 1+
[2017-12-09 10:13] LABS: PLATELET MORPHOLOGY PLATELETS NORMAL
[2017-12-09] MEDS ORDERED: AMIODARONE HCL200 MG PO (13:26)
[2017-12-09] MEDS ORDERED: HYDRALAZINE HCL25 MG PO (13:26)
[2017-12-10] VITALS (7 sets, daily range): BP systolic 129–169; BP diastolic 81–115
[2017-12-10 05:57] LABS: PLATELET COUNT 159 x10^3mcL (130-400)
[2017-12-10 05:59] LABS: RED CELL DISTRIBUTION WIDTH 18.2 % (11.5-14.5)
[2017-12-10 06:12] LABS: CALCIUM 8.3 mg/dL (8.5-10.1); CREATININE SERUM 3.1 mg/dL (0.7-1.3); PHOSPHOROUS 4.5 mg/dL (2.5-4.9); POTASSIUM SERUM 4.2 mmol/L (3.5-5.1)
[2017-12-10 06:20] LABS: BAND NEUTROPHIL 2 % (0-10); MONOCYTE 13 % (0-7); SEGMENTED NEUTROPHILS 59 % (37-75)
[2017-12-10 06:23] LABS: rbc morphology (normal/abnorm) ABNORMAL (NORMAL)
[2017-12-11] VITALS (7 sets, daily range): BP systolic 145–163; BP diastolic 97–110
[2017-12-11 05:59] LABS: CALCIUM 8.1 mg/dL (8.5-10.1); CARBON DIOXIDE 29.2 mmol/L (21-32); PHOSPHOROUS 4.2 mg/dL (2.5-4.9); POTASSIUM SERUM 4.1 mmol/L (3.5-5.1)
[2017-12-11 06:05] LABS: BASOPHIL % 1.2 % (0-2); PLATELET COUNT 147 x10^3mcL (130-400); RED CELL DISTRIBUTION WIDTH 18.3 % (11.5-14.5)
[2017-12-12 05:09] VITALS: BP 125/75
[2017-12-12 06:59] LABS: PLATELET COUNT 149 x10^3mcL (130-400); RED CELL DISTRIBUTION WIDTH 18.1 % (11.5-14.5)
[2017-12-12 07:47] LABS: CALCIUM 8.5 mg/dL (8.5-10.1); CARBON DIOXIDE 31.1 mmol/L (21-32); CREATININE SERUM 2.9 mg/dL (0.7-1.3); MAGNESIUM 2.2 mg/dL (1.8-2.4); PHOSPHOROUS 4.1 mg/dL (2.5-4.9); POTASSIUM SERUM 4.1 mmol/L (3.5-5.1)
[2017-12-12 09:45] VITALS: BP 130/87
[2017-12-12 13:08] VITALS: BP 112/80
[2017-12-12 17:30] VITALS: BP 153/108
[2017-12-12 21:00] VITALS: BP 155/114
[2017-12-13] VITALS (9 sets, daily range): BP systolic 130–162; BP diastolic 89–111
[2017-12-13 06:45] LABS: PLATELET COUNT 141 x10^3mcL (130-400)
[2017-12-13 06:46] LABS: RED CELL DISTRIBUTION WIDTH 17.8 % (11.5-14.5)
[2017-12-13 07:05] LABS: CALCIUM 8.1 mg/dL (8.5-10.1); CARBON DIOXIDE 35.1 mmol/L (21-32); MAGNESIUM 2.2 mg/dL (1.8-2.4); PHOSPHOROUS 3.7 mg/dL (2.5-4.9); POTASSIUM SERUM 3.9 mmol/L (3.5-5.1)
[2017-12-13 10:40] LABS: MONOCYTE 10 % (0-7); SEGMENTED NEUTROPHILS 59 % (37-75)
[2017-12-13 10:43] LABS: PLATELET MORPHOLOGY PLATELETS NORMAL; rbc morphology (normal/abnorm) ABNORMAL (NORMAL)
[2017-12-13] MEDS ORDERED: LASIX40 MG PO (11:41)
[2017-12-13] MEDS ORDERED: ZES20 PO (11:42)
[2017-12-13] MEDS ORDERED: HYDRALAZINE HC100 MG PO (11:54)
[2017-12-14] VITALS (7 sets, daily range): BP systolic 104–146; BP diastolic 73–95
[2017-12-14 07:15] LABS: BASOPHIL % 1.2 % (0-2); PLATELET COUNT 148 x10^3mcL (130-400)
[2017-12-14 07:16] LABS: RED CELL DISTRIBUTION WIDTH 18.1 % (11.5-14.5)
[2017-12-14 07:30] LABS: CALCIUM 8.2 mg/dL (8.5-10.1); CARBON DIOXIDE 34.5 mmol/L (21-32); MAGNESIUM 2.1 mg/dL (1.8-2.4); POTASSIUM SERUM 3.8 mmol/L (3.5-5.1)
[2017-12-14] MEDS ORDERED: IMD60 PO (15:55)
[2017-12-14] MEDS ORDERED: CAT0.1 PO (15:55)
== END 2017-12-14 17:10 | disposition home or self-care (01) | DRG 194 ==
LOC: ED 14:29 → DU 16:38 → IC 16:38 → DU 12-11 16:12 → MU 12-11 19:05 → DU 12-12 07:34
PROVIDERS: Emergency Medicine; Family Medicine; Family Medicine Sports Medicine
PROC: 02HV33Z Insertion of Infusion Device into Superior Vena Cava, Percutaneous Approach (ICD-10-PCS; principal; 2017-12-09)
PROC: B5181ZA Fluoroscopy of Superior Vena Cava using Low Osmolar Contrast, Guidance (ICD-10-PCS; 2017-12-09)
DX: I13.0 Hypertensive heart and chronic kidney disease with heart failure and stage 1 through stage 4 chronic kidney disease, or unspecified chronic kidney disease (principal); N17.0 Acute kidney failure with tubular necrosis; J96.00 Acute respiratory failure, unspecified whether with hypoxia or hypercapnia; E43 Unspecified severe protein-calorie malnutrition; N18.4 Chronic kidney disease, stage 4 (severe); D68.69 Other thrombophilia; I42.0 Dilated cardiomyopathy; E11.65 Type 2 diabetes mellitus with hyperglycemia; K81.9 Cholecystitis, unspecified; I50.43 Acute on chronic combined systolic (congestive) and diastolic (congestive) heart failure; M94.0 Chondrocostal junction syndrome [Tietze]; I10 Essential (primary) hypertension; I48.91 Unspecified atrial fibrillation; E78.5 Hyperlipidemia, unspecified; I16.0 Hypertensive urgency; I25.2 Old myocardial infarction; Z95.0 Presence of cardiac pacemaker; Z68.28 Body mass index [BMI] 28.0-28.9, adult; Z91.11 Patient's noncompliance with dietary regimen
CPT/HCPCS: 36556; 83880; 84439; J0360; J1170; J1642; J1940; J3490; Q0092

== ENCOUNTER 2018-03-30 17:39 | Inpatient (IN) | payer OTHER ==
[~2018-03-30] VITALS: Ht 188 cm; Wt 86.7 kg
[~2018-03-30 17:39] MED LIST changes: +CAT0.1 PO; +HYDRALAZINE HC100 MG PO; +LEVAQUIN500 M1 PO
[2018-03-30 19:04] LABS: BASOPHIL % 0.6 % (0-2); PLATELET COUNT 164 x10^3mcL (130-400)
[2018-03-30 19:06] LABS: BILIRUBIN TOTAL 0.61 mg/dL (0.20-1.00); CALCIUM 8.4 mg/dL (8.5-10.1); CARBON DIOXIDE 21.3 mmol/L (21-32); POTASSIUM SERUM 3.6 mmol/L (3.5-5.1); TOTAL PROTEIN, SERUM 6.9 g/dL (6.4-8.2)
[2018-03-30 19:07] LABS: RED CELL DISTRIBUTION WIDTH 16.2 % (11.5-14.5)
[2018-03-30 19:08] LABS: ALBUMIN 2.4 g/dL (3.4-5.0)
[2018-03-30 19:09] LABS: CREATININE SERUM 4.1 mg/dL (0.7-1.3)
[2018-03-30 19:57] LABS: MAGNESIUM 2.3 mg/dL (1.8-2.4); PHOSPHOROUS 3.6 mg/dL (2.5-4.9)
[2018-03-30 20:02] LABS: UA SPECIFIC GRAVITY 1.025 (1.005-1.035); microscopic required? YES; urine erythrocyte 3+ (NEGATIVE)
[2018-03-30 20:05] LABS: T3 TOTAL 0.66 ng/mL
[2018-03-30 20:07] VITALS: BP 176/121
[2018-03-30 20:07] LABS: FREE T4 1.24 ng/dL (0.76-1.46); FREE THYROXINE INDEX 3.3 ug/dL (1.4-4.5); T4(THYROXINE) 8.3 ug/dL (4.7-13.3)
[2018-03-30 20:13] LABS: AMPHETAMINE QUAL UR NONE DETECTED (NEG <=1000)
[2018-03-30 22:26] VITALS: BP 94/55
[2018-03-31] VITALS (7 sets, daily range): BP systolic 95–132; BP diastolic 55–87
[2018-03-31 06:47] LABS: BASOPHIL % 0.6 % (0-2); PLATELET COUNT 145 x10^3mcL (130-400)
[2018-03-31 06:51] LABS: RED CELL DISTRIBUTION WIDTH 16.7 % (11.5-14.5)
[2018-03-31 07:12] LABS: CALCIUM 7.9 mg/dL (8.5-10.1); CARBON DIOXIDE 24.3 mmol/L (21-32); MAGNESIUM 2.9 mg/dL (1.8-2.4); PHOSPHOROUS 4.8 mg/dL (2.5-4.9); POTASSIUM SERUM 3.6 mmol/L (3.5-5.1)
[2018-03-31 07:34] LABS: CREATININE SERUM 4.3 mg/dL (0.7-1.3)
[2018-04-01 05:25] VITALS: BP 123/83
[2018-04-01 06:39] LABS: BASOPHIL % 0.6 % (0-2); PLATELET COUNT 153 x10^3mcL (130-400)
[2018-04-01 06:59] LABS: CALCIUM 8.1 mg/dL (8.5-10.1); CARBON DIOXIDE 23.7 mmol/L (21-32); CREATININE SERUM 3.9 mg/dL (0.7-1.3); MAGNESIUM 2.7 mg/dL (1.8-2.4); PHOSPHOROUS 4.5 mg/dL (2.5-4.9); POTASSIUM SERUM 3.9 mmol/L (3.5-5.1)
[2018-04-01 07:01] LABS: RED CELL DISTRIBUTION WIDTH 16.7 % (11.5-14.5)
[2018-04-01 10:08] VITALS: BP 117/69
[2018-04-01 13:16] VITALS: BP 104/71
[2018-04-01 16:52] VITALS: BP 104/67
[2018-04-01 20:26] VITALS: BP 107/77
[2018-04-02 05:53] VITALS: BP 124/80
[2018-04-02 06:27] LABS: CARBON DIOXIDE 22.8 mmol/L (21-32); CREATININE SERUM 3.6 mg/dL (0.7-1.3); MAGNESIUM 2.5 mg/dL (1.8-2.4); PHOSPHOROUS 3.9 mg/dL (2.5-4.9); POTASSIUM SERUM 3.4 mmol/L (3.5-5.1)
[2018-04-02 06:35] LABS: PLATELET COUNT 169 x10^3mcL (130-400)
[2018-04-02 09:27] VITALS: BP 129/91
[2018-04-02 09:52] VITALS: Ht 188 cm; Wt 86.7 kg
[2018-04-02 13:08] VITALS: BP 129/91
[2018-04-02 13:19] VITALS: BP 93/59
== END 2018-04-02 15:35 | disposition home or self-care (01) | DRG 190 ==
LOC: ED 17:39 → DU 19:03
PROVIDERS: Emergency Medicine; Family Medicine
DX: I21.4 Non-ST elevation (NSTEMI) myocardial infarction (principal); N17.0 Acute kidney failure with tubular necrosis; E43 Unspecified severe protein-calorie malnutrition; I50.43 Acute on chronic combined systolic (congestive) and diastolic (congestive) heart failure; J18.9 Pneumonia, unspecified organism; I42.0 Dilated cardiomyopathy; N18.4 Chronic kidney disease, stage 4 (severe); I13.0 Hypertensive heart and chronic kidney disease with heart failure and stage 1 through stage 4 chronic kidney disease, or unspecified chronic kidney disease; A08.4 Viral intestinal infection, unspecified; E86.0 Dehydration; E02 Subclinical iodine-deficiency hypothyroidism; I42.2 Other hypertrophic cardiomyopathy; E87.6 Hypokalemia; I16.1 Hypertensive emergency; E11.22 Type 2 diabetes mellitus with diabetic chronic kidney disease; I48.91 Unspecified atrial fibrillation; E87.1 Hypo-osmolality and hyponatremia; I16.0 Hypertensive urgency; E83.41 Hypermagnesemia; Z79.01 Long term (current) use of anticoagulants; Z95.0 Presence of cardiac pacemaker; I25.2 Old myocardial infarction; Z79.899 Other long term (current) drug therapy; Z82.49 Family history of ischemic heart disease and other diseases of the circulatory system; Z87.891 Personal history of nicotine dependence; Z68.24 Body mass index [BMI] 24.0-24.9, adult
CPT/HCPCS: 83880; 84439; 87804; 94150; J0456; J0696; J1940; J3010; J3475; J3490; J7030; J7040; J7620; Q0092

== ENCOUNTER 2018-06-24 22:51 | Inpatient (IN) | payer OTHER ==
[~2018-06-24] VITALS: Ht 188 cm; Wt 84.5 kg
[2018-06-24 23:05] VITALS: Ht 188 cm; Wt 84.5 kg
[2018-06-25 00:41] LABS: BASOPHIL % 1.8 % (0-2); PLATELET COUNT 152 x10^3mcL (130-400)
[2018-06-25 00:45] LABS: RED CELL DISTRIBUTION WIDTH 19.9 % (11.5-14.5)
[2018-06-25 01:07] LABS: ALBUMIN 2.9 g/dL (3.4-5.0); CALCIUM 8.3 mg/dL (8.5-10.1); CARBON DIOXIDE 22.5 mmol/L (21-32); FREE T4 1.87 ng/dL (0.76-1.46); POTASSIUM SERUM 3.2 mmol/L (3.5-5.1); TOTAL PROTEIN, SERUM 6.7 g/dL (6.4-8.2)
[2018-06-25 01:08] LABS: CREATININE SERUM 4.7 mg/dL (0.7-1.3)
[2018-06-25 03:17] LABS: UA SPECIFIC GRAVITY 1.025 (1.005-1.035); microscopic required? YES; urine erythrocyte 2+ (NEGATIVE)
[2018-06-25 03:27] LABS: AMPHETAMINE QUAL UR NONE DETECTED (See below)
[2018-06-25 04:04] LABS: CHOLESTEROL/HDL RATIO 2.5; MAGNESIUM 2.2 mg/dL (1.8-2.4)
[2018-06-25] MEDS ORDERED: XARELTO10 M1 (04:46)
[2018-06-25] MEDS ORDERED: ISOSORBIDE MONO60 MG PO (04:46)
[2018-06-25] MEDS ORDERED: ATORVASTATIN CA40 M1 PO (04:47)
[2018-06-25] MEDS ORDERED: ZESTRIL20 MG PO (04:48)
[2018-06-25] MEDS ORDERED: APR25 PO (04:48)
[2018-06-25] MEDS ORDERED: AMIODARONE HCL200 MG PO (04:49)
[2018-06-25] MEDS ORDERED: FUROSEMIDE40 MG PO (04:49)
[2018-06-25 05:51] VITALS: BP 147/112
[2018-06-25 09:10] VITALS: BP 157/115
[2018-06-25 13:04] VITALS: BP 88/65
[2018-06-25 15:30] VITALS: BP 98/68
[2018-06-25 17:56] VITALS: BP 115/77
[2018-06-25 20:30] VITALS: BP 126/82
[2018-06-26 05:33] VITALS: BP 125/85
[2018-06-26 07:17] LABS: PLATELET COUNT 117 x10^3mcL (130-400); RED CELL DISTRIBUTION WIDTH 19.9 % (11.5-14.5)
[2018-06-26 07:20] LABS: CALCIUM 7.7 mg/dL (8.5-10.1); CARBON DIOXIDE 24.8 mmol/L (21-32); POTASSIUM SERUM 3.6 mmol/L (3.5-5.1)
[2018-06-26 07:29] LABS: CREATININE SERUM 4.2 mg/dL (0.7-1.3)
[2018-06-26 09:05] VITALS: BP 122/82
[2018-06-26 10:47] LABS: MONOCYTE 10 % (0-7); SEGMENTED NEUTROPHILS 56 % (37-75)
[2018-06-26 10:48] LABS: PLATELET MORPHOLOGY PLATELETS DECREASED; rbc morphology (normal/abnorm) ABNORMAL (NORMAL)
[2018-06-26 13:20] VITALS: BP 104/64
[2018-06-26 17:10] VITALS: BP 125/84
[2018-06-26 20:55] VITALS: BP 114/86
[2018-06-27 05:38] VITALS: BP 132/90
[2018-06-27 06:52] LABS: CARBON DIOXIDE 27.2 mmol/L (21-32); POTASSIUM SERUM 3.9 mmol/L (3.5-5.1)
[2018-06-27 06:53] LABS: CREATININE SERUM 4.2 mg/dL (0.7-1.3)
[2018-06-27 08:31] VITALS: BP 116/75
[2018-06-27 10:28] VITALS: BP 116/75
[2018-06-27 12:40] VITALS: BP 109/78
== END 2018-06-27 14:06 | disposition home or self-care (01) | DRG 469 ==
LOC: ED 22:51 → DU 06-25 02:57
PROVIDERS: Emergency Medicine; Internal Medicine; Internal Medicine Nephrology
DX: N17.9 Acute kidney failure, unspecified (principal); I42.0 Dilated cardiomyopathy; I13.0 Hypertensive heart and chronic kidney disease with heart failure and stage 1 through stage 4 chronic kidney disease, or unspecified chronic kidney disease; I50.9 Heart failure, unspecified; N18.4 Chronic kidney disease, stage 4 (severe); J20.9 Acute bronchitis, unspecified; I25.10 Atherosclerotic heart disease of native coronary artery without angina pectoris; I48.2 Chronic atrial fibrillation; E87.6 Hypokalemia; Z95.0 Presence of cardiac pacemaker; Z95.5 Presence of coronary angioplasty implant and graft; Z87.891 Personal history of nicotine dependence; I25.2 Old myocardial infarction; Z82.49 Family history of ischemic heart disease and other diseases of the circulatory system
CPT/HCPCS: 83880; 84439; 87804; J2543; J3370; J7030; J7050

== ENCOUNTER 2018-07-06 21:28 | Emergency (ER) | payer OTHER ==
[~2018-07-06] VITALS: Ht 188 cm; Wt 86.6 kg
[~2018-07-06 21:28] MED LIST changes: +APR25 PO; +ISOSORBIDE MONO60 MG PO; +XARELTO10 M1
[2018-07-06 21:38] VITALS: Ht 188 cm; Wt 86.6 kg
[2018-07-06 22:39] LABS: microscopic required? YES; urine erythrocyte 1+ (NEGATIVE)
[2018-07-06 23:27] VITALS: BP 138/88
== END 2018-07-06 23:27 | disposition home or self-care (01) ==
LOC: ED 21:28
PROVIDERS: Specialist
DX: N39.0 Urinary tract infection, site not specified (principal); I50.9 Heart failure, unspecified; I11.0 Hypertensive heart disease with heart failure

== ENCOUNTER 2018-07-27 23:11 | Emergency (ER) | payer OTHER ==
[~2018-07-27] VITALS: Ht 188 cm; Wt 87.7 kg
[2018-07-27 23:28] VITALS: Ht 188 cm; Wt 87.7 kg
[2018-07-28 00:49] LABS: microscopic required? YES; urine erythrocyte 3+ (NEGATIVE)
[2018-07-28 01:34] VITALS: BP 164/114
== END 2018-07-28 01:34 | disposition home or self-care (01) ==
LOC: ED 23:11
PROVIDERS: Emergency Medicine
DX: I12.9 Hypertensive chronic kidney disease with stage 1 through stage 4 chronic kidney disease, or unspecified chronic kidney disease (principal); N18.9 Chronic kidney disease, unspecified; I50.9 Heart failure, unspecified

== ENCOUNTER 2018-08-11 23:08 | Inpatient (IN) | payer OTHER ==
[~2018-08-11] VITALS: Ht 188 cm; Wt 90.3 kg
[2018-08-11 23:11] VITALS: Ht 188 cm; Wt 90.3 kg
[2018-08-12] VITALS (7 sets, daily range): BP systolic 94–140; BP diastolic 61–103
[2018-08-12 01:13] LABS: PLATELET COUNT 263 x10^3mcL (130-400)
[2018-08-12 01:14] LABS: BASOPHIL % 4.8 % (0-2); RED CELL DISTRIBUTION WIDTH 18.5 % (11.5-14.5)
[2018-08-12 01:31] LABS: CALCIUM 8.5 mg/dL (8.5-10.1); CARBON DIOXIDE 22.6 mmol/L (21-32); CREATININE SERUM 3.9 mg/dL (0.7-1.3); POTASSIUM SERUM 4.1 mmol/L (3.5-5.1)
[2018-08-12 01:48] LABS: BILIRUBIN TOTAL 0.68 mg/dL (0.20-1.00)
[2018-08-12 01:49] LABS: ALBUMIN 2.5 g/dL (3.4-5.0); TOTAL PROTEIN, SERUM 5.9 g/dL (6.4-8.2)
[2018-08-12] MEDS ORDERED: ACETAMINOP160 MG/54 (01:58)
[2018-08-12] MEDS ORDERED: ISOSORBIDE MONO60 MG PO (01:58)
[2018-08-12] MEDS ORDERED: XARELTO10 M1 (01:59)
[2018-08-12] MEDS ORDERED: ZESTRIL20 MG PO (02:00)
[2018-08-12] MEDS ORDERED: ATORVASTATIN CA40 M1 PO (02:00)
[2018-08-12] MEDS ORDERED: FUROSEMIDE40 MG PO (02:00)
[2018-08-12] MEDS ORDERED: HYDRALAZINE HCL25 MG PO (02:00)
[2018-08-12] MEDS ORDERED: AMIODARONE HCL200 MG PO (02:01)
[2018-08-12 04:08] LABS: MAGNESIUM 2.4 mg/dL (1.8-2.4)
[2018-08-12 04:18] LABS: CHOLESTEROL/HDL RATIO 1.9
[2018-08-12 13:14] LABS: AMPHETAMINE QUAL UR NONE DETECTED (See below)
[2018-08-12 13:39] LABS: UA SPECIFIC GRAVITY 1.025 (1.005-1.035); microscopic required? YES; urine erythrocyte 1+ (NEGATIVE)
[2018-08-13 05:18] VITALS: BP 120/85
[2018-08-13 06:25] LABS: CALCIUM 7.9 mg/dL (8.5-10.1); CARBON DIOXIDE 28.5 mmol/L (21-32); CREATININE SERUM 3.7 mg/dL (0.7-1.3)
[2018-08-13 06:40] LABS: BASOPHIL % 0.7 % (0-2); PLATELET COUNT 185 x10^3mcL (130-400)
[2018-08-13 09:14] VITALS: BP 106/74
[2018-08-13 12:59] VITALS: BP 98/67
[2018-08-13 17:07] VITALS: BP 121/85
[2018-08-13 20:48] VITALS: BP 118/81
[2018-08-13 21:14] VITALS: BP 119/79
[2018-08-14 05:20] VITALS: BP 114/77
[2018-08-14 06:27] LABS: CARBON DIOXIDE 27.9 mmol/L (21-32); CREATININE SERUM 3.5 mg/dL (0.7-1.3); POTASSIUM SERUM 4.8 mmol/L (3.5-5.1)
[2018-08-14 06:59] LABS: BASOPHIL % 0.6 % (0-2); PLATELET COUNT 172 x10^3mcL (130-400)
[2018-08-14 07:38] LABS: RED CELL DISTRIBUTION WIDTH 19.6 % (11.5-14.5)
[2018-08-14 08:30] VITALS: BP 106/60
[2018-08-14 12:27] VITALS: BP 98/68
[2018-08-14 16:21] VITALS: BP 105/74
[2018-08-14 21:13] VITALS: BP 111/77
[2018-08-14 21:22] VITALS: BP 118/83
[2018-08-15 05:46] VITALS: BP 125/86
[2018-08-15 06:22] LABS: CALCIUM 8.1 mg/dL (8.5-10.1); CARBON DIOXIDE 28.7 mmol/L (21-32); CREATININE SERUM 3.3 mg/dL (0.7-1.3); POTASSIUM SERUM 4.3 mmol/L (3.5-5.1)
[2018-08-15 06:26] LABS: BASOPHIL % 0.4 % (0-2); PLATELET COUNT 192 x10^3mcL (130-400)
[2018-08-15 06:36] LABS: RED CELL DISTRIBUTION WIDTH 19.6 % (11.5-14.5)
[2018-08-15 08:31] VITALS: BP 111/64
[2018-08-15 11:54] VITALS: BP 124/84
[2018-08-15 15:29] VITALS: BP 124/91
[2018-08-15 18:25] VITALS: BP 105/68
[2018-08-15 20:39] VITALS: BP 137/84
[2018-08-16] VITALS (10 sets, daily range): BP systolic 102–137; BP diastolic 50–88
[2018-08-16 07:04] LABS: PLATELET COUNT 203 x10^3mcL (130-400)
[2018-08-16 07:05] LABS: RED CELL DISTRIBUTION WIDTH 19.5 % (11.5-14.5)
[2018-08-16 07:07] LABS: BILIRUBIN TOTAL 0.73 mg/dL (0.20-1.00); CALCIUM 8.4 mg/dL (8.5-10.1); CARBON DIOXIDE 30.9 mmol/L (21-32); CREATININE SERUM 3.3 mg/dL (0.7-1.3); PHOSPHOROUS 3.4 mg/dL (2.5-4.9)
[2018-08-16 07:08] LABS: ALBUMIN 1.9 g/dL (3.4-5.0); TOTAL PROTEIN, SERUM 5.7 g/dL (6.4-8.2)
[2018-08-16 12:12] LABS: SEGMENTED NEUTROPHILS 76 % (37-75)
[2018-08-16 12:13] LABS: ATYPICAL LYMPH 0 %; BAND NEUTROPHIL 0 % (0-10); BASOPHIL 0 % (0-2); MONOCYTE 4 % (0-7); PLATELET MORPHOLOGY PLATELETS DECREASED; rbc morphology (normal/abnorm) ABNORMAL (NORMAL)
[2018-08-16] MEDS ORDERED: HYDRALAZINE HCL25 MG PO (16:44)
[2018-08-16] MEDS ORDERED: ISOSORBIDE MONO60 MG PO (16:45)
[2018-08-16] MEDS ORDERED: ALD25 PO (16:48)
[2018-08-17 05:42] VITALS: BP 122/85
[2018-08-17 06:48] LABS: ALBUMIN 1.9 g/dL (3.4-5.0); BILIRUBIN TOTAL 0.74 mg/dL (0.20-1.00); CALCIUM 8.7 mg/dL (8.5-10.1); CARBON DIOXIDE 30.3 mmol/L (21-32); CREATININE SERUM 3.3 mg/dL (0.7-1.3); PHOSPHOROUS 3.3 mg/dL (2.5-4.9); POTASSIUM SERUM 4.5 mmol/L (3.5-5.1); TOTAL PROTEIN, SERUM 5.7 g/dL (6.4-8.2)
[2018-08-17 07:59] VITALS: BP 134/87
[2018-08-17 09:19] LABS: calcium (part of PTHIC) 8.3 mg/dL (8.7-10.2)
[2018-08-17 11:53] VITALS: BP 124/80
[2018-08-17 14:55] VITALS: BP 124/80
[2018-08-17 18:21] VITALS: BP 136/95
== END 2018-08-17 21:11 | disposition home or self-care (01) | DRG 469 ==
LOC: ED 23:08 → DU 08-12 02:31
PROVIDERS: Emergency Medicine; Internal Medicine
DX: N17.9 Acute kidney failure, unspecified (principal); I50.23 Acute on chronic systolic (congestive) heart failure; E11.22 Type 2 diabetes mellitus with diabetic chronic kidney disease; I42.9 Cardiomyopathy, unspecified; I13.0 Hypertensive heart and chronic kidney disease with heart failure and stage 1 through stage 4 chronic kidney disease, or unspecified chronic kidney disease; N18.4 Chronic kidney disease, stage 4 (severe); Z79.01 Long term (current) use of anticoagulants; I48.2 Chronic atrial fibrillation; Z95.0 Presence of cardiac pacemaker; Z95.5 Presence of coronary angioplasty implant and graft; I25.10 Atherosclerotic heart disease of native coronary artery without angina pectoris; Z82.49 Family history of ischemic heart disease and other diseases of the circulatory system; Z79.899 Other long term (current) drug therapy; R07.89 Other chest pain
CPT/HCPCS: 82962; 83880; J1940; J2405; Q0092

== ENCOUNTER 2019-03-02 16:11 | Inpatient (IN) | payer OTHER ==
[~2019-03-02] VITALS: Ht 188 cm; Wt 86.8 kg
[~2019-03-02 16:11] MED LIST changes: +ACETAMINOP160 MG/54; +ALD25 PO
[2019-03-02 18:19] LABS: BASOPHIL % 1.8 % (0-2); PLATELET COUNT 146 x10^3mcL (130-400)
[2019-03-02 18:20] LABS: RED CELL DISTRIBUTION WIDTH 16.4 % (11.5-14.5)
[2019-03-02 18:30] LABS: ALKALINE PHOSPHATASE 125 U/L (46-116); ALT/SGPT 18 U/L (16-63); AST/SGOT 19 U/L (15-37); BILIRUBIN TOTAL 0.7 mg/dL (0.20-1.00); CALCIUM 8.4 mg/dL (8.5-10.1); CARBON DIOXIDE 28.4 mmol/L (21-32); CHLORIDE SERUM 104 mmol/L (98-107); GLUCOSE SERUM 88 mg/dL (74-106); POTASSIUM SERUM 3.3 mmol/L (3.5-5.1); SODIUM SERUM 139 mmol/L (136-145); TOTAL PROTEIN, SERUM 6.3 g/dL (6.4-8.2)
[2019-03-02 18:32] LABS: ALBUMIN 2.8 g/dL (3.4-5.0); CREATININE SERUM 4.2 mg/dL (0.7-1.3); GFR1 16 mL/min
[2019-03-02 19:46] LABS: AMPHETAMINE QUAL UR NONE DETECTED (See below)
[2019-03-02] MEDS ORDERED: CARVEDILOL25 M1 PO (21:43)
[2019-03-02] MEDS ORDERED: DIG125 PO (21:44)
[2019-03-02 22:28] LABS: CHOLESTEROL/HDL RATIO 2.1; MAGNESIUM 2.4 mg/dL (1.8-2.4)
[2019-03-02 22:29] VITALS: BP 188/106
[2019-03-02 22:35] VITALS: Ht 188 cm; Wt 86.8 kg
[2019-03-02] MEDS ORDERED: XARELTO10 M1 PO (22:42)
[2019-03-03] VITALS (9 sets, daily range): BP systolic 131–178; BP diastolic 74–111
[2019-03-03 01:50] LABS: microscopic required? YES; urine erythrocyte 1+ (NEGATIVE)
[2019-03-03 06:33] LABS: CALCIUM 8.5 mg/dL (8.5-10.1); CARBON DIOXIDE 27.5 mmol/L (21-32); POTASSIUM SERUM 3.1 mmol/L (3.5-5.1)
[2019-03-03 06:50] LABS: BASOPHIL % 1.8 % (0-2); PLATELET COUNT 134 x10^3mcL (130-400)
[2019-03-03 06:59] LABS: RED CELL DISTRIBUTION WIDTH 16.5 % (11.5-14.5)
[2019-03-04] VITALS (9 sets, daily range): BP systolic 143–187; BP diastolic 92–120
[2019-03-04 06:53] LABS: BASOPHIL % 1.2 % (0-2); PLATELET COUNT 138 x10^3mcL (130-400)
[2019-03-04 07:18] LABS: CALCIUM 8.9 mg/dL (8.5-10.1); CARBON DIOXIDE 26.2 mmol/L (21-32); POTASSIUM SERUM 3.9 mmol/L (3.5-5.1)
[2019-03-04 07:27] LABS: RED CELL DISTRIBUTION WIDTH 16.3 % (11.5-14.5)
[2019-03-05 05:46] VITALS: BP 164/106
[2019-03-05 06:30] LABS: BILIRUBIN TOTAL 0.76 mg/dL (0.20-1.00); PHOSPHOROUS 3.3 mg/dL (2.5-4.9); POTASSIUM SERUM 4.1 mmol/L (3.5-5.1); TOTAL PROTEIN, SERUM 6.6 g/dL (6.4-8.2)
[2019-03-05 06:31] LABS: ALBUMIN 2.9 g/dL (3.4-5.0)
[2019-03-05 06:40] LABS: CALCIUM 8.9 mg/dL (8.5-10.1); CARBON DIOXIDE 26.1 mmol/L (21-32); CREATININE SERUM 3.8 mg/dL (0.7-1.3); POTASSIUM SERUM 4.1 mmol/L (3.5-5.1)
[2019-03-05 08:15] LABS: BASOPHIL % 1.2 % (0-2); PLATELET COUNT 143 x10^3mcL (130-400)
[2019-03-05 08:18] LABS: RED CELL DISTRIBUTION WIDTH 16.4 % (11.5-14.5)
[2019-03-05 09:22] VITALS: BP 161/105
[2019-03-05 13:31] VITALS: BP 105/60
[2019-03-05 17:06] VITALS: BP 129/85
[2019-03-05 21:39] VITALS: BP 133/85
[2019-03-05 22:15] VITALS: BP 147/97
[2019-03-06] VITALS (7 sets, daily range): BP systolic 94–161; BP diastolic 64–103
[2019-03-06 15:18] LABS: CALCIUM 9.5 mg/dL (8.7-10.2)
[2019-03-07 06:00] VITALS: BP 132/88
[2019-03-07 06:24] LABS: BASOPHIL % 1.4 % (0-2); PLATELET COUNT 153 x10^3mcL (130-400)
[2019-03-07 06:40] LABS: BILIRUBIN TOTAL 0.67 mg/dL (0.20-1.00); CALCIUM 8.6 mg/dL (8.5-10.1); CARBON DIOXIDE 27.7 mmol/L (21-32); MAGNESIUM 2.6 mg/dL (1.8-2.4); PHOSPHOROUS 4.2 mg/dL (2.5-4.9); POTASSIUM SERUM 4.8 mmol/L (3.5-5.1); TOTAL PROTEIN, SERUM 6.6 g/dL (6.4-8.2)
[2019-03-07 06:45] LABS: RED CELL DISTRIBUTION WIDTH 16.2 % (11.5-14.5)
[2019-03-07 06:58] LABS: ALBUMIN 2.9 g/dL (3.4-5.0); CREATININE SERUM 4.1 mg/dL (0.7-1.3)
[2019-03-07 09:33] VITALS: BP 145/86
[2019-03-07 10:19] VITALS: BP 145/86
== END 2019-03-07 11:13 | disposition home or self-care (01) | DRG 199 ==
LOC: ED 16:11 → DU 21:20
PROVIDERS: Emergency Medicine; Internal Medicine; ADMIT Internal Medicine
DX: I16.1 Hypertensive emergency (principal); E11.22 Type 2 diabetes mellitus with diabetic chronic kidney disease; I50.20 Unspecified systolic (congestive) heart failure; N17.9 Acute kidney failure, unspecified; N18.4 Chronic kidney disease, stage 4 (severe); I48.91 Unspecified atrial fibrillation; S16.1XXA Strain of muscle, fascia and tendon at neck level, initial encounter; I25.10 Atherosclerotic heart disease of native coronary artery without angina pectoris; Z68.24 Body mass index [BMI] 24.0-24.9, adult; Z79.01 Long term (current) use of anticoagulants; Z95.5 Presence of coronary angioplasty implant and graft; X58.XXXA Exposure to other specified factors, initial encounter; Y93.89 Activity, other specified; Y92.89 Other specified places as the place of occurrence of the external cause; Z95.0 Presence of cardiac pacemaker; I13.0 Hypertensive heart and chronic kidney disease with heart failure and stage 1 through stage 4 chronic kidney disease, or unspecified chronic kidney disease; Z82.49 Family history of ischemic heart disease and other diseases of the circulatory system; Z87.891 Personal history of nicotine dependence
CPT/HCPCS: A9500; G0480; J2785; J7030

== ENCOUNTER 2020-01-30 13:34 | Inpatient (IN) | payer MEDICAID ==
[~2020-01-30] VITALS: Ht 188 cm; Wt 84.8 kg
[~2020-01-30 13:34] MED LIST changes: +DIG125 PO
[2020-01-30 13:37] VITALS: Ht 188 cm; Wt 84.8 kg
[2020-01-30 14:49] LABS: BASOPHIL % 1.5 % (0-2); PLATELET COUNT 141 x10^3mcL (130-400); RED CELL DISTRIBUTION WIDTH 14.7 % (11.5-14.5)
[2020-01-30 15:19] LABS: BILIRUBIN TOTAL 0.7 mg/dL (0.20-1.00); CALCIUM 8.9 mg/dL (8.5-10.1); CARBON DIOXIDE 28.2 mmol/L (21-32); MAGNESIUM 2.4 mg/dL (1.8-2.4); POTASSIUM SERUM 4.3 mmol/L (3.5-5.1); TOTAL PROTEIN, SERUM 6.7 g/dL (6.4-8.2)
[2020-01-30 15:28] LABS: ALBUMIN 3.3 g/dL (3.4-5.0)
[2020-01-30 15:29] LABS: CREATININE SERUM 6.8 mg/dL (0.7-1.3)
[2020-01-30 17:28] LABS: CHOLESTEROL/HDL RATIO 2.4
[2020-01-30 17:30] LABS: microscopic required? YES; urine erythrocyte 2+ (NEGATIVE)
[2020-01-30 17:33] VITALS: BP 169/125
[2020-01-30 20:53] LABS: AMPHETAMINE QUAL UR NONE DETECTED (See below)
[2020-01-30 21:37] VITALS: BP 170/132
[2020-01-30 22:49] VITALS: BP 137/99
[2020-01-31 05:05] VITALS: BP 146/98
[2020-01-31 07:13] LABS: BASOPHIL % 1.7 % (0-2); CALCIUM 8.1 mg/dL (8.5-10.1); CARBON DIOXIDE 24.4 mmol/L (21-32); MAGNESIUM 2.4 mg/dL (1.8-2.4); PHOSPHOROUS 6.4 mg/dL (2.5-4.9)
[2020-01-31 07:14] LABS: PLATELET COUNT 129 x10^3mcL (130-400); RED CELL DISTRIBUTION WIDTH 14.8 % (11.5-14.5)
[2020-01-31 08:15] VITALS: BP 151/109
[2020-01-31 12:19] VITALS: BP 145/105
[2020-01-31 16:53] VITALS: BP 152/104
[2020-01-31 20:27] VITALS: BP 147/106
[2020-02-01 05:35] VITALS: BP 144/102
[2020-02-01 06:10] LABS: BASOPHIL % 1.5 % (0-2); PLATELET COUNT 145 x10^3mcL (130-400)
[2020-02-01 07:19] LABS: CALCIUM 8.5 mg/dL (8.5-10.1); CARBON DIOXIDE 22.4 mmol/L (21-32); MAGNESIUM 2.4 mg/dL (1.8-2.4); PHOSPHOROUS 6.2 mg/dL (2.5-4.9); POTASSIUM SERUM 4.1 mmol/L (3.5-5.1)
[2020-02-01 07:43] LABS: CREATININE SERUM 7.2 mg/dL (0.7-1.3)
[2020-02-01 08:02] VITALS: BP 150/100
[2020-02-01 12:00] VITALS: BP 155/115
[2020-02-01 16:34] VITALS: BP 110/63
[2020-02-01 20:45] VITALS: BP 131/87
[2020-02-02 05:23] VITALS: BP 133/83
[2020-02-02 06:48] LABS: BASOPHIL % 1.4 % (0-2); PLATELET COUNT 130 x10^3mcL (130-400)
[2020-02-02 06:56] LABS: RED CELL DISTRIBUTION WIDTH 14.9 % (11.5-14.5)
[2020-02-02 07:01] LABS: CALCIUM 8.3 mg/dL (8.5-10.1); CARBON DIOXIDE 29.1 mmol/L (21-32); POTASSIUM SERUM 4.3 mmol/L (3.5-5.1)
[2020-02-02 07:06] LABS: CREATININE SERUM 5.3 mg/dL (0.7-1.3)
[2020-02-02 07:35] VITALS: BP 127/86
[2020-02-02] MEDS ORDERED: ELIQUIS5 MG PO (09:23)
[2020-02-02 09:59] VITALS: BP 127/86
[2020-02-02 12:01] VITALS: BP 143/95
== END 2020-02-02 15:12 | disposition home or self-care (01) | DRG 466 ==
LOC: ED 13:34 → MU 16:10 → DU 16:10 → MU 01-31 17:36
PROVIDERS: Emergency Medicine; ADMIT Family Medicine
PROC: 0J2VXYZ Change Other Device in Upper Extremity Subcutaneous Tissue and Fascia, External Approach (ICD-10-PCS; principal; 2020-01-30)
PROC: B5181ZA Fluoroscopy of Superior Vena Cava using Low Osmolar Contrast, Guidance (ICD-10-PCS; 2020-01-30)
DX: T82.41XA Breakdown (mechanical) of vascular dialysis catheter, initial encounter (principal); N18.6 End stage renal disease; I13.2 Hypertensive heart and chronic kidney disease with heart failure and with stage 5 chronic kidney disease, or end stage renal disease; N17.9 Acute kidney failure, unspecified; E44.1 Mild protein-calorie malnutrition; I48.91 Unspecified atrial fibrillation; E83.39 Other disorders of phosphorus metabolism; I50.40 Unspecified combined systolic (congestive) and diastolic (congestive) heart failure; I25.10 Atherosclerotic heart disease of native coronary artery without angina pectoris; Y83.9 Surgical procedure, unspecified as the cause of abnormal reaction of the patient, or of later complication, without mention of misadventure at the time of the procedure; Z95.0 Presence of cardiac pacemaker; Z68.24 Body mass index [BMI] 24.0-24.9, adult; Z95.5 Presence of coronary angioplasty implant and graft; Z82.49 Family history of ischemic heart disease and other diseases of the circulatory system; Z87.891 Personal history of nicotine dependence; Z56.0 Unemployment, unspecified
CPT/HCPCS: 83880; G0378; J1644; J2001; J2250; J2405; J3010; J3490; J7030; Q0092

== ENCOUNTER 2020-09-20 20:10 | Inpatient (IN) | payer OTHER, SELFPAY ==
[~2020-09-20] VITALS: Ht 188 cm; Wt 90.3 kg
[~2020-09-20 20:10] MED LIST changes: +ELIQUIS5 MG PO
[2020-09-20 20:11] VITALS: Ht 188 cm; Wt 90.3 kg
[2020-09-20 21:05] LABS: BASOPHIL % 0.9 % (0-2); PLATELET COUNT 165 x10^3mcL (130-400); RED CELL DISTRIBUTION WIDTH 15.9 % (11.5-14.5)
[2020-09-20 21:24] LABS: ALBUMIN 3.8 g/dL (3.4-5.0); BILIRUBIN TOTAL 0.6 mg/dL (0.20-1.00); CALCIUM 9.7 mg/dL (8.5-10.1); POTASSIUM SERUM 3.9 mmol/L (3.5-5.1); TOTAL PROTEIN, SERUM 7.3 g/dL (6.4-8.2)
[2020-09-20 21:28] LABS: CREATININE SERUM 5.7 mg/dL (0.7-1.3)
[2020-09-21 00:11] VITALS: BP 120/93
[2020-09-21 06:18] VITALS: BP 147/100
[2020-09-21 07:19] LABS: MAGNESIUM 2.3 mg/dL (1.8-2.4)
[2020-09-21 07:22] LABS: CHOLESTEROL/HDL RATIO 2.3
[2020-09-21 07:30] LABS: BASOPHIL % 0.6 % (0-2); PLATELET COUNT 160 x10^3mcL (130-400); RED CELL DISTRIBUTION WIDTH 15.4 % (11.5-14.5)
[2020-09-21 08:33] VITALS: BP 161/114
[2020-09-21 08:39] LABS: CALCIUM 9.6 mg/dL (8.5-10.1); CARBON DIOXIDE 30.3 mmol/L (21-32); CREATININE SERUM 6.2 mg/dL (0.7-1.3); POTASSIUM SERUM 4.4 mmol/L (3.5-5.1)
[2020-09-21 12:19] VITALS: BP 123/84
[2020-09-21 15:21] LABS: microscopic required? NO
[2020-09-21 15:28] LABS: UA SPECIFIC GRAVITY 1.015 (1.005-1.035); urine erythrocyte NEGATIVE (NEGATIVE)
[2020-09-21 15:38] LABS: AMPHETAMINE QUAL UR NONE DETECTED (See below)
[2020-09-21 16:22] VITALS: BP 117/70
[2020-09-21 20:43] VITALS: BP 111/70
[2020-09-22 05:52] VITALS: BP 104/64
[2020-09-22 07:56] VITALS: BP 98/55
[2020-09-22 08:30] VITALS: BP 92/50
[2020-09-22 12:19] VITALS: BP 108/74
[2020-09-22 16:05] VITALS: BP 125/79
[2020-09-22 20:32] VITALS: BP 142/91
[2020-09-23 05:18] VITALS: BP 119/71
[2020-09-23 08:05] VITALS: BP 136/92
[2020-09-23 12:41] VITALS: BP 121/88
[2020-09-23 15:29] VITALS: BP 121/88
== END 2020-09-23 16:53 | disposition home or self-care (01) | DRG 308 ==
LOC: ED 20:10 → DU 22:40
PROVIDERS: Emergency Medicine; ADMIT Internal Medicine; ATTEND Internal Medicine
PROC: 5A1D70Z Performance of Urinary Filtration, Intermittent, Less than 6 Hours Per Day (ICD-10-PCS; principal; 2020-09-22)
DX: I48.91 Unspecified atrial fibrillation (principal); N18.6 End stage renal disease; I50.22 Chronic systolic (congestive) heart failure; I13.2 Hypertensive heart and chronic kidney disease with heart failure and with stage 5 chronic kidney disease, or end stage renal disease; I42.8 Other cardiomyopathies; Z20.828 Contact with and (suspected) exposure to other viral communicable diseases; I25.10 Atherosclerotic heart disease of native coronary artery without angina pectoris; D63.8 Anemia in other chronic diseases classified elsewhere; E78.5 Hyperlipidemia, unspecified; I44.7 Left bundle-branch block, unspecified; I48.92 Unspecified atrial flutter; Z95.0 Presence of cardiac pacemaker; Z95.818 Presence of other cardiac implants and grafts; Z82.49 Family history of ischemic heart disease and other diseases of the circulatory system
CPT/HCPCS: 83880; G0378; J1160; J1644; J7030; J7050; Q0092

== ENCOUNTER 2020-10-02 07:47 | Emergency (ER) | payer OTHER ==
[~2020-10-02] VITALS: Ht 188 cm; Wt 86.6 kg
[2020-10-02 07:48] VITALS: Ht 188 cm; Wt 86.6 kg
[2020-10-02 08:15] LABS: BASOPHIL % 0.9 % (0-2); PLATELET COUNT 219 x10^3mcL (130-400)
[2020-10-02 08:25] LABS: RED CELL DISTRIBUTION WIDTH 16.3 % (11.5-14.5)
[2020-10-02 08:32] VITALS: BP 115/68
[2020-10-02 08:37] LABS: ALBUMIN 4.3 g/dL (3.4-5.0); CALCIUM 9.2 mg/dL (8.5-10.1); CARBON DIOXIDE 29.1 mmol/L (21-32); POTASSIUM SERUM 4.2 mmol/L (3.5-5.1); TOTAL PROTEIN, SERUM 7.7 g/dL (6.4-8.2)
[2020-10-02 08:44] LABS: CREATININE SERUM 5.9 mg/dL (0.7-1.3)
== END 2020-10-02 08:32 | disposition short-term general hospital (02) ==
LOC: ED 07:47
PROVIDERS: Emergency Medicine
DX: I21.3 ST elevation (STEMI) myocardial infarction of unspecified site (principal); I48.91 Unspecified atrial fibrillation; I25.119 Atherosclerotic heart disease of native coronary artery with unspecified angina pectoris; I13.0 Hypertensive heart and chronic kidney disease with heart failure and stage 1 through stage 4 chronic kidney disease, or unspecified chronic kidney disease; I43 Cardiomyopathy in diseases classified elsewhere; N18.9 Chronic kidney disease, unspecified; I50.9 Heart failure, unspecified; Z20.828 Contact with and (suspected) exposure to other viral communicable diseases
CPT/HCPCS: 83880; J1644; J2270

== ENCOUNTER 2020-10-23 07:42 | Inpatient (IN) | payer OTHER ==
[~2020-10-23] VITALS: Ht 188 cm; Wt 90.3 kg
--- NOTE | 2020-10-23 08:40 | NUR ---
PT PRESENTS FOR EVAL OF ABD PAIN; PT HAS SIGN HX OF HEART PROBLEMS AND RECENT [place] WELL ABLAITION;PT STS IS SET UP TO HAVE SECOND ABLAITON 11/06; PT PRESENTS W/NAUSEA AND INCREASE IN BELCHING; NO C/O CHEST PAIN OR SOB; PT SEEN BY PROVIDER
--- NOTE | 2020-10-23 08:50 | NUR ---
PT MEDICATED PER ORDER, WAITING ON FURTHER RESULTS FROM LAB FOR DISPO
[2020-10-23 09:23] LABS: PLATELET COUNT 209 x10^3mcL (130-400)
[2020-10-23 09:34] LABS: RED CELL DISTRIBUTION WIDTH 16.4 % (11.5-14.5)
--- NOTE | 2020-10-23 09:35 | NUR ---
PT NOTED TO HAVE TACHY RHYTHM, ACCELERATED JUCTIONAL; STS HAS HAD ABLAITIONS OF ATRIA IN THE PAST;NO C/O CHEST PAIN OR SOB, INCRESE IN BELCHING NOTED
[2020-10-23 10:19] LABS: ALBUMIN 3.6 g/dL (3.4-5.0); BILIRUBIN TOTAL 0.88 mg/dL (0.20-1.00); CALCIUM 9.6 mg/dL (8.5-10.1); CARBON DIOXIDE 26.4 mmol/L (21-32); POTASSIUM SERUM 4.2 mmol/L (3.5-5.1); TOTAL PROTEIN, SERUM 7.1 g/dL (6.4-8.2)
[2020-10-23 10:28] LABS: CREATININE SERUM 9.2 mg/dL (0.7-1.3)
--- NOTE | 2020-10-23 10:50 | NUR ---
PT TO BE ADDMITTED FOR FURTHER OBSERVATION; RESTING WELL
--- NOTE | 2020-10-23 11:40 | NUR ---
PT RESTING WELL, REMAINS IN "TACHY" RHYTHM, NOTED TO HAVE AN EPISODE OF V FIB, UNSUSTATAINED; NO SOB/NO CHEST PAIN OR INCREASE IN ABD PAIN; WAITING ON BED ASSIGNMENT
[2020-10-23 11:53] LABS: BAND NEUTROPHIL 0 % (0-10); MONOCYTE 7 % (0-7); SEGMENTED NEUTROPHILS 53 % (37-75)
[2020-10-23 11:54] LABS: PLATELET MORPHOLOGY PLATELETS NORMAL; rbc morphology (normal/abnorm) NORMAL (NORMAL)
--- NOTE | 2020-10-23 12:10 | NUR ---
CALLED [facility] TO COMPLETE PT'S MED REC. PT STATES ONLY OTC MED IS ASA WHICH WAS ALSO GIVEN TO ME BY [facility].
[2020-10-23] MEDS ORDERED: ATORVASTATIN CA40 M1 PO (12:12)
[2020-10-23] MEDS ORDERED: VENTOLIN H0.09 MG/A1 INH (12:14)
[2020-10-23] MEDS ORDERED: SYMBICORT1 AE3 INH (12:15)
[2020-10-23] MEDS ORDERED: ASPIR 8181 MG PO (12:20)
--- NOTE | 2020-10-23 12:21 | NUR ---
MED REC COMPLETED, DR. ARGUELLO HAD ALREADY MARKED MEDS TO CONTINUE BUT SOME MEDS PT IS NO LONGER TAKING. PAGED DR. ARGUELLO. NO CALL BACK. UPDATED MED REC TO REFLECT WHAT PT IS CURRENTLY TAKING.
--- NOTE | 2020-10-23 12:45 | NUR ---
BED ASSIGNMENT RECD; REPORT GIVEN; PT PREP FOR TRANSPORT
--- NOTE | 2020-10-23 13:15 | NUR ---
RECEIVED PATIENT FROM ER ACCOMPANIED BY ER NURSE, SEEN AAOX4. AMBULATORY WELL NOTED WALKED BACK FROM THE BATHROOM TO BED WITH STEADY GAIT. NO SOB, DENIES CHEST PAIN. TELE#[address] TD=802, PATIENT HAD ONE EPISODE OF VTACH, ASYMTOMATIC AT THIS TIME. KEPT NPO X MEDS, PATIENT MADE AWARE. S/L ON LAC FLUSHED PATENT. TUNNELLED CATHETER NOTED ON RIGHT CHEST WALL WITH DRSG DRY, INTACT. STATED LAST HD WAS ON WEDNESDAY. STATED STILL VOIDS 3-4 TIMES PER DAY. NO EDEMA TO EXTREMITY. CALL LIGHT PLACED WITHIN EASY REACH. SIDERAILS UP X2.
[2020-10-23 13:31] VITALS: BP 173/123
--- NOTE | 2020-10-23 14:10 | NUR ---
SEEB BY DOCTOR IRAIDA.
--- NOTE | 2020-10-23 14:21 | NUR ---
STATED NO MORE NAUSEA, DENIES CHEST CHEST PAIN OR CHEST PRESSURE. HYDRALAZINE AND COREG PO GIVEN FOR ELEVATED BLOOD PRESSURE. S/L ON LAC FLUSHED PATENT.
[2020-10-23 14:28] VITALS: BP 173/123
[2020-10-23 16:08] VITALS: BP 122/75
--- NOTE | 2020-10-23 18:46 | NUR ---
PT RESTING ON BED CALM. VITAL SIGNS STABLE. DENIES ANY PAIN. DENIES NAUSEA AFTER DINER. SL ON LEFT AC PATENT.
--- NOTE | 2020-10-23 19:00 | NUR ---
I HAVE REVIEWED THE DATA COLLECTION BY RN (NAME):FRANCINE SANCHEZ ENTERED ON (DATE/TIME):10/23/20 7A-7P I CONCUR WITH THE DATA AND ANY EXCEPTIONS OR COMMENTS ARE LISTED BELOW:
--- NOTE | 2020-10-23 19:30 | NUR ---
AWAKE AND ALERT, ORIENTED TO NAME, PLACE, TIME AND SITUATION. SPEECH CLEAR AND APPROPRIATE. BREATHING EVEN AND UNLABORED ON ROOM AIR. AFIB/AFLUTTER ON TELE. HR IN THE 90 TO LOW HUNDREDS. DENIES HAVING CHEST PAIN OR CHEST DISCOMFORT. DIALYSIS CATHETER TO RIGHT CHEST WALL, DRESSING CDI. CALL LIGHT WITHIN EASY REACH.
--- NOTE | 2020-10-23 19:46 | NUR ---
INFORMED DR. COFFMAN NEED CLARIFICATION TO ELIQUIS DOSE. PT TAKES ELIQUIS BID AT HOME
--- NOTE | 2020-10-23 20:39 | NUR ---
HELD APRESOLINE AND COREG. PT STATED HIS BP GOES TO TOO LOW WHEN HE TAKES APRESOLINE. APICAL PULSE WAS 45, THUS COREG HELD. INITIALLY HELD AMIODARONE TOO, BUT EKG WAS DONE, HR 86/MIN. PT STATED HE WILL TAKE AMIODARONE BUT NOT COREG TONIGHT. EKG READS AFIB. PAGED DR. COFFMAN.
--- NOTE | 2020-10-23 20:42 | NUR ---
DR. COFFMAN CALLED BACK. INFORMED EKG READS AFIB, HR 86/MIN. ALSO INFORMED HELD APRESOLINE AND COREG DUE TO PT REFUSED, HAVING STATED HIS BP WILL BE TOO LOW IF HE TAKES THESE.
--- NOTE | 2020-10-23 20:53 | NUR ---
CALLED PHARMACIST AND INFORMED HIM OF CLARIFICATION OF ELIQUIS ORDER. PHARMACIST STATED PT RECEIVED AT 1410H TODAY. HE STATED NEXT DOSE WILL BE TOMORROW
--- NOTE | 2020-10-24 02:07 | NUR ---
LYNN DICKSON STATED SHE PUT PT ON 2LPM OF O2 VIA NC AFTER PT CALLED AND STATED HE WAS SHORT OF BREATH AFTER HE WALKED TO THE RESTROOM.
--- NOTE | 2020-10-24 02:49 | NUR ---
EYES CLOSED, BREATHING EVEN AND UNLABORED ON 2LPM OF O2 VIA NC. RR 16/MIN. HOB KEPT ELEVATED 30 DEG. CALL LIGHT WITHIN EASY REACH.
[2020-10-24 05:49] VITALS: BP 127/91
--- NOTE | 2020-10-24 06:15 | NUR ---
EYES CLOSED, BREATHING EVEN AND UNLABORED ON 2LPM OF O2 VIA NC. CALL LIGHT WITHIN EASY REACH.
--- NOTE | 2020-10-24 07:16 | NUR ---
ENDORSED TO NURSE IEVY
[2020-10-24 07:26] LABS: PLATELET COUNT 174 x10^3mcL (130-400)
[2020-10-24 07:37] LABS: MAGNESIUM 2.5 mg/dL (1.8-2.4); PHOSPHOROUS 4.8 mg/dL (2.5-4.9); POTASSIUM SERUM 4.1 mmol/L (3.5-5.1)
[2020-10-24 07:39] LABS: CREATININE SERUM 9.3 mg/dL (0.7-1.3)
[2020-10-24 08:04] VITALS: BP 135/99
--- NOTE | 2020-10-24 10:38 | NUR ---
NOTED ORDER FOR HD. HAMMAD RABAGO MADE AWARE.
[2020-10-24 11:30] LABS: MONOCYTE 7 % (0-7); PLATELET MORPHOLOGY PLATELETS NORMAL; SEGMENTED NEUTROPHILS 51 % (37-75); rbc morphology (normal/abnorm) NORMAL (NORMAL)
--- NOTE | 2020-10-24 11:52 | NUR ---
PT RECIEVING HEMODIALYSIS AT BED SIDE, NO SIGNS OF DISTRESS. NURSE AT BED SIDE.
[2020-10-24 12:13] VITALS: BP 148/105
--- NOTE | 2020-10-24 12:25 | NUR ---
PATIENT STATED HAVING CHEST PAIN 7/10 ON PAIN SCALE DURING HEMODIALYSIS. HD STOPPED BY HD NURSE. MORPHINE 1MG IVP SLOWLY GIVEN AT THIS TIME. BP 147/108 HR 109 RR 22 O2SAT 100% ON 2LPM N/C. WILL CONTINUE TO MONITOR.
--- NOTE | 2020-10-24 12:30 | NUR ---
STATED FEELING A LITTLE BIT BETTER. HD NURSE AT BEDSIDE.
--- NOTE | 2020-10-24 14:43 | NUR ---
HD COMPLETED. NET UF 2.0LTERS. BP 144/87, HR 113. DENIES PAIN AT THIS TIME. DRSG TO RIGHT CHEST TUNNELLED CATHETER SITE CHANGED BY HD NURSE, NOTED CDI. WILL CONTINUE TO MONITOR.
[2020-10-24 16:44] VITALS: BP 133/95
--- NOTE | 2020-10-24 18:35 | NUR ---
NO ANY DISTRESS AT THIS TIME. DENIES CHEST PAIN. REMAINS ON 2LPM N/C, O2SAT 95%. DRSG ON RIGHT CHEST WALL TUNNELLED CATHETER SITE CDI. DENIES NAUSEA. TOLERATED TO RENAL, DENIES ABD PAIN. S/L ON LAC FLUSHED PATENT.
--- NOTE | 2020-10-24 19:29 | NUR ---
AWAKE AND ALERT, WATCHING TV AT THIS TONIGHT. ORIENTED TO NAME, PLACE, TIME AND SITUATION. SPEECH CLEAR AND APPROPRIATE. STATED HAD EPISODE OF CHEST PAIN WHILE DIALYSIS ONGOING. DENIES HAVING CHEST PAIN OR CHEST DISCOMFORT AT THIS TIME. AFIB ON TELE, HR 110/MIN. BREATHING EVEN AND UNLABORED ON 2LPM OF VIA NC. CALL LIGHT WITHIN EASY REACH
--- NOTE | 2020-10-24 20:03 | NUR ---
BP 170/77, DE 76. PAGED DR. CARLOS IMAGING TECHNOLOGIST FOR DR. BELLE
--- NOTE | 2020-10-24 23:18 | NUR ---
EYES CLOSED, BREATHING EVEN AND UNLABORED ON 2LPM OF O2 VIA NC. AFIB HR 97-105/MIN. CALL LIGHT WITHIN EASY REACH.
[2020-10-25 05:21] VITALS: BP 117/77; BP 177/77
--- NOTE | 2020-10-25 06:40 | NUR ---
AWAKE AND ALERT, STATED SLEPT WELL, BREATHING REMAINED EVEN AND UNLABORED. WATCHING TV AT THIS TIME.
--- NOTE | 2020-10-25 07:18 | NUR ---
AWAKE AND ALERT, IN NO ACUTE DISTRESS. ENDORSED TO NURSE NALLELY
[2020-10-25 07:23] LABS: PLATELET COUNT 151 x10^3mcL (130-400)
--- NOTE | 2020-10-25 07:30 | NUR ---
RECEIVED REPORT FROM NIGHT NURSE. PATIENT RESTING IN BED, AAO TIMES 4. DENIES PAIN. RESPIRATIONS EVEN AND UL ON RA. DENIES CP/CARDIAC DISCOMFORT. IV SITE TO LAC, CDI, PATENT. BED IN LOWEST POSITION, CALL LIGHT IN REACH, SAFETY MEASURES IN PLACE.
[2020-10-25 07:39] LABS: RED CELL DISTRIBUTION WIDTH 16.5 % (11.5-14.5)
[2020-10-25 07:46] LABS: CALCIUM 8.7 mg/dL (8.5-10.1); CARBON DIOXIDE 26.3 mmol/L (21-32); MAGNESIUM 2.3 mg/dL (1.8-2.4); PHOSPHOROUS 5.1 mg/dL (2.5-4.9); POTASSIUM SERUM 3.8 mmol/L (3.5-5.1)
[2020-10-25 07:50] LABS: CREATININE SERUM 8.7 mg/dL (0.7-1.3)
[2020-10-25 08:35] VITALS: BP 143/101
[2020-10-25] MEDS ORDERED: ELIQUIS2.5 MG PO (10:54)
[2020-10-25] MEDS ORDERED: APR10 PO (10:54)
[2020-10-25] MEDS ORDERED: COR200 PO (10:54)
--- NOTE | 2020-10-25 12:01 | NUR ---
1. Continue with renal diet as tolerate 2. Recommend Nepro QD to provide 425kcal and 19.1g protein.
--- NOTE | 2020-10-25 12:01 | NUR ---
Initial Nutrition Assessment: RenéeA MIRYAM JANSEN 60M Nursing trigger: Poor PO > 3 days, admitted with potential risk diagnosis Dx: CP PMHx: Atrial flutter, persistent afib, Chronic systolic heart failure, Nonischemic cardiomyopathy, Coronary artery disease, intrinsic left bundle branch block, permanent pacemaker, hypertension dyslipidemia, ESRD PSHx: raiodfrequency ablation, pacemaker placement, PCI Labs: (10/25) H/H 8.8/26L, Na 135L, BUN 44H, Cr 8.7H, Phos 5.1H, (10/23) AST 10L, ALT 13L Meds: Eliquis, Coreg, Cordarone, Morphine sulfate, Aspirin, B-12, Lipitor, Folic acid, Protonix Diet: Renal PO intake since admission: (10/23) D: 75%, (10/24) B: 90%, D: 100% Ht: 187.96cm/74in Wt: 90.265kg/199lbs BMI: 25.5kg/m2 Bed scale: 200.6lbs IBW: 86.36kg/190lbs %IBW: 104.52% UBW: 190-200lbs per pt Age: 60 Food Allergies: NKFA per pt Edema: none noted Last BM: 10/22 Skin: skin intact Romero: 21 Per H and P (10/23), The patient is a 60-year-old male with PMH of Systolic and Diastolic CHF, CAD s/p 1 stent placed 1 year ago, pacemaker insertion 5 years ago due to unspecified Heart Block, Atrial Fibrillation, ESRD TTS HD, who came with complaints of chest pain. The patient states that yesterday he missed his HD appointment so he went home and decided to eat, after whic he started having abdominal pain and gas, the pain was severe, he looked online and thought it could be IBS so he decided not to seek help. This morning the patient woke up with Chest pain and SOB, the pain is rated as 7/10, non-radiating, no alleviating or exacerbating factors, he said that it did resemble the pain he had when he had his [place] but much less severe. He denies headache, dizziness, nausea, vomiting, abdominal pain, dyspea, chest pain, cough, peripheral edema. Pt was admitted with dx: CP, abd pain likely 2/2 ileus, megaloblastic anemia, ESRD HD TTS, h/o HTN, h/o Systolic and diastolic CHF, h/o CAD, h/o Afib RD Note (10/25/2020) Pt was seen sitting in bed during bedside visit. Per pt, he was tolerating diet with good appetite and no GI distress. Pt denied recent weight changes and reported usual body weight being 190-200lbs. Pt stated that his body weight used to be 265lbs 5 years ago, and he lost weight through diet and exercise. Pt is currently following a low sodium diet at home and walks 6 days a week as physical activity. Pt denied the needs for adjustment for current diet. Problem with: N/V/D/C: none per pt Problems with: Chewing: Swallowing: none per pt Current appetite: good per pt Recent wt change: none per pt %wt change: none per pt Height: 6'2" Vitamin/Supplement use: none per pt Special diet at home: low sodium diet Physical activity: walking 6 days a week Nutrition education given (specify specific nutrition education and handout given): Education on renal diet and cardiac diet were provided. Encourage pt to follow a diet with low sodium and also be mindful of phosphorus intake d/t elevated phosphorus level. Recommended substituting saturated fat (such as butter) with Terreton-3 fats. Written education "Cardiac-TLC Nutrition Therapy" and "Chronic Kidney Disease Stage 3-5 Nutrition Therapy" were provided, and pt verbalized understanding Food-drug interactions? Education given? n/a Estimated Nutritional Needs Based on ideal body weight (86kg) Energy: 7602-4404 kcal/day (25-30 kcal/kg for ESRD on HD) Protein: 103-120 g/day (1.2-1.4 g/kg for ESRD on HD) Fluid: 500-1000 mL + HD output /day (1 mL/kcal) Nutrition Diagnosis: 1. Altered nutrition related labs r/t renal dysfunction a/e/b elevated BUN 44, Cr 8.7H, and phos 5.1H. Intervention 1. Continue with renal diet as tolerate 2. Recommend Nepro QD to provide 425kcal and 19.1g protein. Monitor/Evaluate Goal: PO intake at least 75% of estimated needs Monitor: PO intake, Labs, GI function, ONS intake F/U in 3-5 days as moderate risk 10/28-
[2020-10-25 12:29] VITALS: BP 106/66
[2020-10-25 15:18] LABS: MONOCYTE 8 % (0-7); SEGMENTED NEUTROPHILS 57 % (37-75)
[2020-10-25 15:19] LABS: rbc morphology (normal/abnorm) NORMAL (NORMAL)
[2020-10-25 15:25] VITALS: BP 108/66
--- NOTE | 2020-10-25 15:30 | NUR ---
PATIENT RESTING IN BED, RESPIRATIONS EVEN AND UL ON RA. DENIES PAIN AND DISCOMFORT. PT REMAINS STABLE. BED IN LOWEST POSITION, CALL LIGHT IN REACH, SAFETY MEASURES IN PLACE.
[2020-10-25] MEDS ORDERED: AMIODARONE HCL100 MG PO (15:55)
[2020-10-25] MEDS ORDERED: LASIX40 MG PO (15:57)
--- NOTE | 2020-10-25 18:02 | NUR ---
RECEIVED DISCHARGE ORDER. PRINTED DISCHARGE INSTRUCTIONS GIVEN AND EXPLAINED TO PATIENT. ALL QUESTIONS ANSWERED AT THIS TIME. PATIENT VERBALIZED UNDERSTANDING OF ALL DISCHARGE INSTRUCTIONS, FOLLOW-UP APPOINTMENTS AND EDUCATION MATERIALS. 1800-PER CASE MANAGEMENT, TRANSPORTATION IS SCHEDULED WITH [facility] BETWEEN 1929 AND 1999. PATIENT MADE AWARE. BED IN LOWEST POSITION, CALL LIGHT IN REACH. WILL CONT TO MONITOR AND ENDORSE TO ONCOMING NURSE.
[2020-10-25 18:31] VITALS: BP 124/88
--- NOTE | 2020-10-25 19:45 | NUR ---
REPORT FROM NALLELY FINNEGAN. NO S/S OF DISTRESS OR DISCOMFORT. PATIENT BREATHING EVEN AND UNLABORED ON RA 98% SPO2 CTAB. PATIENT AXOX2 CALM AND COOPERATIVE. PATIENT AMBULATORY. PATIENTS IV IS OUT AT THIS TIME, PREPARING FOR DISCHARGE. TELE 38 AFIB. NO CP ACTIVE BOWELS X4 SKIN INTACT. STRONG RADIAL AND PEDAL PULSES. VOIDS FREELY IN URINAL. BED IN LOW POSITION, SIDE RAILS UPX2 CALL LIGHT WITHIN REACH. WILL CONTINUE TO MONITOR PATIENT AND OFFER SUPPORT.
--- NOTE | 2020-10-25 19:50 | NUR ---
PATIENT IV OUT, TELEMETRY DISCONTINUED, NO S/S OF DISTRESS. PATIENT VERBALIZED HE FELT WELL. ASSISTANT PROFESSOR SURGICAL TECHNOLOGY ASSITED PATIENT WITH BELONGINGS AND HELPED HIM TO THE W/C. PT ASSITED DOWNSTAIRS TO TRANSPORT.
== END 2020-10-25 20:01 | disposition home or self-care (01) | DRG 291 ==
LOC: ED 07:42 → DU 11:13
PROVIDERS: Emergency Medicine; ADMIT Internal Medicine; ATTEND Internal Medicine
PROC: 5A1D70Z Performance of Urinary Filtration, Intermittent, Less than 6 Hours Per Day (ICD-10-PCS; principal; 2020-10-24)
DX: I13.2 Hypertensive heart and chronic kidney disease with heart failure and with stage 5 chronic kidney disease, or end stage renal disease (principal); N18.6 End stage renal disease; I50.23 Acute on chronic systolic (congestive) heart failure; I48.92 Unspecified atrial flutter; Z20.828 Contact with and (suspected) exposure to other viral communicable diseases; I25.10 Atherosclerotic heart disease of native coronary artery without angina pectoris; I48.91 Unspecified atrial fibrillation; Z82.49 Family history of ischemic heart disease and other diseases of the circulatory system; Z87.891 Personal history of nicotine dependence; D53.1 Other megaloblastic anemias, not elsewhere classified; I42.8 Other cardiomyopathies; Z91.19 Patient's noncompliance with other medical treatment and regimen; I44.7 Left bundle-branch block, unspecified; Z99.2 Dependence on renal dialysis
CPT/HCPCS: 83880; C9113; G0378; J1644; J2270; J2765; J7030

== ENCOUNTER 2020-12-17 09:26 | Emergency (ER) | payer OTHER, SELFPAY ==
[~2020-12-17] VITALS: Ht 188 cm; Wt 89.8 kg
[~2020-12-17 09:26] MED LIST changes: +AMIODARONE HCL100 MG PO; +APR10 PO; +COR200 PO; +ELIQUIS2.5 MG PO; +SYMBICORT1 AE3 INH; +VENTOLIN H0.09 MG/A1 INH
[2020-12-17 09:28] VITALS: Ht 188 cm; Wt 89.8 kg
[2020-12-17 10:49] LABS: PLATELET COUNT 145 x10^3mcL (152-348)
[2020-12-17 10:50] LABS: BASOPHIL % 2.5 % (0.2-1.5); RED CELL DISTRIBUTION WIDTH 18.2 % (12.1-16.2)
[2020-12-17 11:11] LABS: BILIRUBIN TOTAL 0.8 mg/dL (0.20-1.00); C REACTIVE PROTEIN 2.7 mg/dL (<=0.9); CALCIUM 10.7 mg/dL (8.5-10.1); CARBON DIOXIDE 33.4 mmol/L (21-32); POTASSIUM SERUM 3.2 mmol/L (3.5-5.1); TOTAL PROTEIN, SERUM 6.4 g/dL (6.4-8.2)
[2020-12-17 11:17] LABS: CREATININE SERUM 7.2 mg/dL (0.7-1.3)
[2020-12-17 13:00] VITALS: BP 160/120
== END 2020-12-17 13:00 | disposition home or self-care (01) ==
LOC: ED 09:26
PROVIDERS: Emergency Medicine
DX: D53.1 Other megaloblastic anemias, not elsewhere classified (principal); I25.10 Atherosclerotic heart disease of native coronary artery without angina pectoris; I13.2 Hypertensive heart and chronic kidney disease with heart failure and with stage 5 chronic kidney disease, or end stage renal disease; N18.6 End stage renal disease; I50.9 Heart failure, unspecified; E78.00 Pure hypercholesterolemia, unspecified; Z98.890 Other specified postprocedural states; Z20.828 Contact with and (suspected) exposure to other viral communicable diseases
CPT/HCPCS: 36600; 83880; 85378; 87804; U0003